=== PATIENT | female | born 1995 | race Two or more races ===

== ENCOUNTER 2020-09-19 15:56 | Emergency (ER) | payer MEDICAID, SELFPAY ==
--- NOTE | ~2020-09-19 | US_ITS ---
EXAMINATION: PELVIC ULTRASOUND CLINICAL INFORMATION: No menses with increasing pain COMPARISON: None TECHNIQUE: Both transabdominal endovaginal scanning was performed. FINDINGS: An anteverted anteflexed uterus is present measuring 8.4 x 4.8 x 5.4 cm. The endometrium appears normal at 7 mm. No fluid is present in the endometrial canal. The right ovary measures 3.8 x 2.4 x 2.0 cm for a volume of 9.6 mL and appears normal. The left ovary measures 3.7 x 2.5 x 1.7 cm for a volume of 8.2 mL and appears normal. No free fluid is present in the cul-de-sac. US/US pelvic and transvaginal IMPRESSION: Normal study.
[2020-09-19 18:15] VITALS: BP 119/80; TEMP 36.3; O2SAT 100; BMI 21.6
--- NOTE | 2020-09-19 18:22 | ED_ITS ---
HPI - Abdominal Pain General Chief Complaint: Abdominal Pain Stated Complaint: Lower abdominal pain Time Seen by Provider: 09/19/20 18:22 Source: patient Mode of arrival: ambulatory Limitations: no limitations History of Present Illness HPI narrative: lower pelvic pain for months with no period. Has not had a period since May. tests negative, no history of STDs, . No vaginal discharge or bleeding MD elicited complaint: other (pelvic pain) Onset (ago): month(s) Pain Consistency: intermittent Location: pelvis Severity: mild Quality: cramping Related Data Allergies Allergy/AdvReac Type Severity Reaction Status Date / Time No Known Allergies Allergy Unverified 01/24/20 18:28 [No Known Allergies*] Review of Systems Constitutional: Reports no additional constitutional complaints Eyes: Reports no additional eye complaints Denies dizziness Cardiovascular: Reports no additional cardiovascular complaints Respiratory: Reports as per HPI Gastrointestinal: Reports no additional gastrointestinal complaints Genitourinary: Reports no additional female genitourinary complaints Musculoskeletal: Reports no additional musculoskeletal complaints Skin/Breast: Denies rash Reports system reviewed and no additional complaints, except as documented, Denies dizziness and Denies Sensory deficit (Neuro) Psychiatric: Denies anxiety Physical Exam Vital Signs: Vital Signs: Last Vital Signs Temp 98.6 F 09/19/20 19:09 Pulse 71 09/19/20 19:09 Resp 18 09/19/20 19:09 BP 119/71 09/19/20 19:09 Pulse Ox 100 09/19/20 19:09 Body Mass Index 21.6 Const: General: healthy appearing Nutritional Appearance: average body habitus Orientation/consciousness: oriented to person and patient oriented x3 Limitations: no limitations HENMT: Head: Yes normal to inspection Ears: external ears normal General nose exam: Normal external nose present Mouth: Normal oral and palatal mucosa present and oropharynx normal Throat: Yes posterior oropharynx normal Eyes: General: appearance normal, both eyes and all related structures Neck: Other: supple Neck: Yes normal visual inspection Chest: Chest palpation & inspection: normal inspection of the chest Resp: Auscultation: clear to auscultation bilaterally Cardio: Jugular venous distension: no JVD Rate: regular rate Rhythm: regular rhythm Heart sounds: S1 normal heart sound present and S2 normal heart sound present GI: Inspection: Yes normal to inspection Palpation (GI): Soft to palpation, nontender and No hepatosplenomegaly present Auscultation: normal bowel sounds : General: Yes no CVA tenderness Back/Spine/Pelvis: Back: no CVA tenderness Skin: General skin exam: no rashes or lesions noted Neuro: General: oriented to person and patient oriented x3 Cranial nerves: Yes CN's II-XII intact bilaterally Motor exam (neuro): 5/5 motor strength present throughout Sensory Exam: No Sensory deficit (Neuro) Extrem: General: Yes normal to inspection Psych: Appearance: grossly normal Course Course Course Narrative: urine and ultrasound negative will dc home with follow up with [facility] tender MDM - Abdominal Pain Differential Diagnosis Differential diagnosis: Likely endometriosis Differential diagnosis narrative:: ovarian cyst Lab Data Labs: Lab Results 09/19/20 09/19/20 Range/Units 18:48 18:48 Urine Color YELLOW Urine Appearance CLOUDY Urine pH 8.0 (5.0-8.0) Ur Specific [place] 1.025 (1.005-1.025) Urine Protein NEG (NEG-TRACE) MG/DL Urine Glucose (UA) NEG (NEG) MG/DL Urine Ketones NEG (NEG) MG/DL Urine Blood NEG (NEG) Urine Nitrite NEG (NEG) Ur Leukocyte Esterase NEG (NEG) Urine Test NEGATIVE (NEGATIVE) Imaging Data pelvic us: Radiologist's impression: IMPRESSION: Normal study. Discharge Plan Discharge Clinical Impression: Amenorrhea Patient Disposition: Home, Self-Care Instructions: Pelvic Pain (ED) Referrals: Brandt Das MD [Physician] - 10 days [facility] Social History Social History Alcohol intake: current Alcohol type: wine and hard liquor Smoking Status: Never smoker Use of substances other than those prescribed or required for medical reasons: No Advance Directives: No Advance Directives Information Provided: Yes Patient : No
[2020-09-19 18:55] LABS: Appearance Urine CLOUDY; Color Urine YELLOW; Glucose Urine UA NEG (NEG); Leukocyte Esterase Urine NEG (NEG); Nitrite Urine NEG (NEG); Specific Gravity - Urine 1.025 (1.005-1.025); Urine Blood NEG (NEG); Urine Ketones NEG (NEG); Urine Protein NEG (NEG-TRACE)
[2020-09-19 18:56] LABS: Urine Pregnancy NEGATIVE (NEGATIVE)
[2020-09-19 19:09] VITALS: BP 119/71; PULSE 71; RESP 18; TEMP 37; O2SAT 100
[2020-09-19 20:16] LABS: UPreg QC Valid YES
== END 2020-09-19 21:28 | disposition home or self-care (01) ==
PROVIDERS: Emergency Provider Emergency Medicine
DX: N91.0 Primary amenorrhea (principal); R10.2 Pelvic and perineal pain; Z79.899 Other long term (current) drug therapy
CPT/HCPCS: 76830; 76856; 81003; 81025; 99284

== ENCOUNTER → 2020-10-07 14:14 | Outpatient (BNVA) | payer MEDICAID, SELFPAY | PROVIDERS: Visit Provider Obstetrics & Gynecology ==

== ENCOUNTER 2020-10-22 09:50 | Outpatient (REF) | payer MEDICAID, SELFPAY ==
[2020-10-23 05:36] LABS: CT PCR DETECTED (Not Detect.); NG PCR NOT DETECTED (Not Detect.)
[2020-10-23 09:48] LABS: BV Int Neg Control Negative (Negative); BV Int Pos Control Positive (Positive)
[2020-11-07 10:46] LABS: HPV 16 RNA NOT DETECTED (NOT DETECTED); HPV mRNA E6/E7 rflx Detected (Not Detected)
== END 2020-10-22 09:51 | disposition home or self-care (01) ==
LOC: HO.LAB 09:50
PROVIDERS: Visit Provider Obstetrics & Gynecology
DX: Z01.419 Encounter for gynecological examination (general) (routine) without abnormal findings (principal); Z11.3 Encounter for screening for infections with a predominantly sexual mode of transmission; B96.89 Other specified bacterial agents as the cause of diseases classified elsewhere; N76.0 Acute vaginitis
CPT/HCPCS: 87480; 87491; 87510; 87591; 87624; 87625; 87660; 88142

== ENCOUNTER 2020-10-27 13:47 | Outpatient (REF) | payer MEDICAID, SELFPAY ==
[2020-10-27 15:34] LABS: HCG Quantitative < 2 mIU/mL; TSH reflex Free T4 1.21 uIU/mL (0.32-4.0)
[2020-10-27 15:36] LABS: Syphilis Screen Nonreactive (Nonreactive)
[2020-10-28 08:02] LABS: Prolactin 9.4 ng/mL
[2020-10-28 09:16] LABS: Hepatitis B Surface Antigen Negative (Negative)
[2020-10-28 10:23] LABS: ~HepC Num1 0.08 S/CO (0.00-0.79); ~Hepatitis C Antibody Nonreactive (Nonreactive)
[2020-10-28 10:29] LABS: HIV AB/AG Nonreactive (Nonreactive); HIV Num 1 0.18 S/CO (0.00-0.99)
== END 2020-10-27 13:48 | disposition home or self-care (01) ==
LOC: HO.LAB 13:47
PROVIDERS: Visit Provider Obstetrics & Gynecology
DX: Z01.84 Encounter for antibody response examination (principal); Z11.59 Encounter for screening for other viral diseases; Z11.4 Encounter for screening for human immunodeficiency virus [HIV]; A74.9 Chlamydial infection, unspecified; N91.2 Amenorrhea, unspecified
CPT/HCPCS: 36415; 84146; 84443; 84702; 86780; 86803; 87340; 87389

== ENCOUNTER → 2020-11-11 10:42 | Outpatient (BNVA) | payer MEDICAID, SELFPAY | PROVIDERS: Visit Provider Obstetrics & Gynecology ==

== ENCOUNTER 2021-01-26 14:45 | Outpatient (REF) | payer MEDICAID, SELFPAY ==
[2021-01-27 04:51] LABS: CT PCR NOT DETECTED (Not Detect.); NG PCR NOT DETECTED (Not Detect.)
[2021-01-27 08:56] LABS: BV Int Neg Control Negative (Negative); BV Int Pos Control Positive (Positive)
== END 2021-01-26 14:46 | disposition home or self-care (01) ==
LOC: HO.LAB 14:45
PROVIDERS: Visit Provider Obstetrics & Gynecology
DX: A74.9 Chlamydial infection, unspecified (principal); B96.89 Other specified bacterial agents as the cause of diseases classified elsewhere; N76.0 Acute vaginitis
CPT/HCPCS: 87480; 87491; 87510; 87591; 87660; 99212

== ENCOUNTER 2021-02-03 13:56 | Outpatient (REF) | payer MEDICAID, SELFPAY | END 2021-02-03 13:57 | disposition home or self-care (01) | LOC: HO.LAB 13:56 | PROVIDERS: Visit Provider Obstetrics & Gynecology | DX: R87.810 Cervical high risk human papillomavirus (HPV) DNA test positive (principal) | CPT/HCPCS: 57454; 88305 ==

== ENCOUNTER 2021-02-13 17:41 | Emergency (ER) | payer MEDICAID, SELFPAY ==
[2021-02-13 19:28] VITALS: BP 120/82; PULSE 73; RESP 16; TEMP 36; O2SAT 100; BMI 21.2
[2021-02-13 19:51] LABS: Appearance Urine HAZY; Color Urine YELLOW; Glucose Urine UA NEG (NEG); Leukocyte Esterase Urine NEG (NEG); Nitrite Urine NEG (NEG); UACC Culture Trigger NO; Urine Blood 2+ (NEG); Urine Ketones 40 MG/DL (NEG); Urine Protein NEG (NEG-TRACE)
[2021-02-13 19:53] LABS: UPreg QC Valid YES; Urine Pregnancy POSITIVE (NEGATIVE)
[2021-02-13 19:59] LABS: Squamous Epithelial Cell Urine 3+ /LPF
[2021-02-13 20:03] LABS: Amorphous Sediment Urine 1+ /LPF; Bacteria Urine TRACE /LPF; WBC Urine 0-2 /HPF (0-4)
[2021-02-13 22:56] LABS: MANUAL DIFF FLAG NO
[2021-02-13 22:58] LABS: Basophils Percent Auto 0.4 % (0-2); Eosinophils Absolute Auto 0.1 X10*3/uL (0.0-0.4); Eosinophils Percent Auto 1.5 % (0-4); Hematocrit 38.9 % (37-47); Hemoglobin 12.6 g/dl (12.0-16.0); Imm Gran Abs Auto 0.02 X10*3/uL (0.00-0.03); Imm Gran Pct Auto 0.2 % (0.0-0.4); Lymphocytes Absolute Auto 2.7 X10*3/uL (1.2-4.9); Lymphocytes Percent Auto 28.8 % (20-40); Mean Corpuscular HGB Conc 32.4 g/dl (31.0-35.0); Mean Corpuscular Hemoglobin 28.4 pg (27.0-33.0); Mean Corpuscular Volume 87.6 fL (80-98); Mean Platelet Volume 9.7 fL (9.4-12.3); Monocytes Percent Auto 10.2 % (2-11); Neutrophils Absolute Auto 5.6 X10*3/uL (2.0-8.3); Neutrophils Percent Auto 58.9 % (45-73); Platelet Count 372 X10*3/uL (160-400); Red Blood Count 4.44 X10*6/uL (4.20-5.50); Red Cell Distribution Width 12.1 % (11.0-16.0); White Blood Count 9.5 X10*3/uL (4.8-10.8)
[2021-02-13 23:12] LABS: Anion Gap 13 (12-20); Blood Urea Nitrogen 8 mg/dL (9-16); Calcium 9.4 mg/dL (8.4-10.2); Carbon Dioxide 21 mmol/L (22-29); Chloride 105 mmol/L (96-108); Creatinine Clr Calc Pharmacy 96.6; Estimated Glomerular Filt Rate > 60; Glucose Random 75 mg/dL (60-115); Potassium 3.9 mmol/L (3.3-5.1); Sodium 135 mmol/L (135-145)
[2021-02-13 23:20] LABS: HCG Quantitative 6868 mIU/mL
--- NOTE | 2021-02-14 00:12 | ED_ITS ---
HPI - Female Genitourinary General Chief complaint: Urogenital-Female Stated complaint: uro-genital female Time Seen by Provider: 02/14/21 00:11 Source: patient Mode of arrival: ambulatory Limitations: no limitations History of Present Illness MD elicited complaint: pelvic pain Onset (ago): day(s) (3) Location of symptoms: suprapubic Severity: mild Quality of pain: dull Consistency: intermittent Vaginal discharge: none Vaginal bleeding: other (noted some pink tinge when she wipes only and it was brief and intermittent) Exacerbating factors: none Relieving factors: none Associated symptoms: denies other symptoms Treatment prior to arrival: none Sexual activity: Yes Possible : unsure if Date of Last Menstrual Period: 01/03/21 Related Data Previous Rx's Medication Instructions Recorded metronidazole 500 mg tablet 500 mg PO BID 7 Days #14 tab 01/26/21 Allergies Allergy/AdvReac Type Severity Reaction Status Date / Time No Known Allergies Allergy Verified 10/07/20 14:15 [No Known Allergies*] Review of Systems Review of Systems: Constitutional : No Fever, No Chills ENT/Mouth : No sore throat, No Rhinorrhea Eyes: No Eye Pain, No Redness Cardiovascular : No Chest Pain, No SOB Respiratory : No Cough, No Sputum, No Wheezing Gastrointestinal : no Nausea, No Vomiting, No Diarrhea, no abdominal pain, Genitourinary : no irregular bleeding, No Dysuria, No Urinary Frequency, positive pelvic pain Musculoskeletal : No Myalgias Skin : No rash Neuro : No Weakness, No Headache Psych : No Anxiety/Panic, No Depression Heme/Lymph: No bruising, No Lymphadenopathy Endocrine : No Polyuria, No Polydipsia All other systems reviewed and are negative [facility] Past Medical History Attestation statement: The following information was validated with the patient. Medical History (Updated 02/14/21 @ 00:36 by Michaela Sawant DO) Amenorrhea Date of Last Menstrual Period: 01/03/21 Social History Social History Alcohol intake: current Alcohol type: wine and hard liquor Patient Tobacco Use Status: Never used Tobacco Advance Directives: No Advance Directives Information Provided: Yes Physical Exam Vital Signs: Vital Signs: Last Vital Signs Temp 98.8 F 02/14/21 00:28 Pulse 90 02/14/21 00:28 Resp 16 10/09/21 00:28 BP 136/58 L 02/14/21 00:28 Pulse Ox 100 02/14/21 00:28 Body Mass Index 21.2 Appearance: Alert. Oriented X3. No acute distress. Eyes: Pupils equal, round and reactive to light. ENT: Pharynx normal. Neck: Normal inspection. Neck supple. CVS: Normal heart rate and rhythm. Pulses normal. Respiratory: No respiratory distress. Breath sounds normal. Abdomen: Soft and nontender. Skin: Skin warm and dry. Normal skin color. Normal skin turgor. Extremities: No lower extremity edema. No calf ttp Neuro: Oriented X 3. No motor deficit. No sensory deficit. MDM - Female Genitourinary MDM Narrative Medical decision making narrative: 26 yo female LMP 01/03 here with lower abdominal discomfort and intermittent pink tinge when she wipes but no bleeding - unsure if she was , I offered formal US as the bedside one I did just found a gestational sac with a quant of 6,000 - at this time she declines and wants to come back in the AM for US. She is aware she is an ectopic precaution Lab Data Result diagrams: 02/13/21 22:36 02/13/21 22:36 Labs: Lab Results 02/13/21 02/13/21 02/13/21 Range/Units 19:40 19:40 22:36 WBC 9.5 (4.8-10.8) X10*3/uL RBC 4.44 (4.20-5.50) X10*6/uL Hgb 12.6 (12.0-16.0) g/dl Hct 38.9 (37-47) % MCV 87.6 (80-98) fL MCH 28.4 (27.0-33.0) pg MCHC 32.4 (31.0-35.0) g/dl RDW 12.1 (11.0-16.0) % Plt Count 372 (160-400) X10*3/uL MPV 9.7 (9.4-12.3) fL Immature Gran % (Auto) 0.2 (0.0-0.4) % Neut % (Auto) 58.9 (45-73) % Lymph % (Auto) 28.8 (20-40) % [place] % (Auto) 10.2 (2-11) % Eos % (Auto) 1.5 (0-4) % Baso % (Auto) 0.4 (0-2) % Lymph # (Auto) 2.7 (1.2-4.9) X10*3/uL [place] # (Auto) 1.0 (0.1-1.2) X10*3/uL Eos # (Auto) 0.1 (0.0-0.4) X10*3/uL Baso # (Auto) 0.0 (0.0-0.2) X10*3/uL Abs Immat Gran (auto) 0.02 (0.00-0.03) X10*3/uL Absolute Neuts (auto) 5.6 (2.0-8.3) X10*3/uL Absolute Nucleated RBC 0.000 (0.0-0.012) X10*3/uL Nucleated RBC % (auto) 0.0 (0.0-0.2) /100WBC Sodium (135-145) mmol/L Potassium (3.3-5.1) mmol/L Chloride (96-108) mmol/L Carbon Dioxide (22-29) mmol/L Anion Gap (12-20) BUN (9-16) mg/dL Creatinine (0.5-1.4) mg/dL Estim Creat Clear Calc Estimated GFR Random Glucose (60-115) mg/dL Calcium (8.4-10.2) mg/dL Beta HCG, Quant mIU/mL Urine Color YELLOW Urine Appearance HAZY Urine pH 7.0 (5.0-8.0) Ur Specific [place] 1.020 (1.005-1.025) Urine Protein NEG (NEG-TRACE) MG/DL Urine Glucose (UA) NEG (NEG) MG/DL Urine Ketones 40 (NEG) MG/DL Urine Blood 2+ H (NEG) Urine Nitrite NEG (NEG) Ur Leukocyte Esterase NEG (NEG) Urine RBC 1-4 (0) /HPF Urine WBC 0-2 (0-4) /HPF Ur Squamous Epith Cells 3+ /LPF Amorphous Sediment 1+ /LPF Urine Bacteria TRACE /LPF Urine Test POSITIVE H (NEGATIVE) 02/13/21 Range/Units 22:36 WBC (4.8-10.8) X10*3/uL RBC (4.20-5.50) X10*6/uL Hgb (12.0-16.0) g/dl Hct (37-47) % MCV (80-98) fL MCH (27.0-33.0) pg MCHC (31.0-35.0) g/dl RDW (11.0-16.0) % Plt Count (160-400) X10*3/uL MPV (9.4-12.3) fL Immature Gran % (Auto) (0.0-0.4) % Neut % (Auto) (45-73) % Lymph % (Auto) (20-40) % [place] % (Auto) (2-11) % Eos % (Auto) (0-4) % Baso % (Auto) (0-2) % Lymph # (Auto) (1.2-4.9) X10*3/uL [place] # (Auto) (0.1-1.2) X10*3/uL Eos # (Auto) (0.0-0.4) X10*3/uL Baso # (Auto) (0.0-0.2) X10*3/uL Abs Immat Gran (auto) (0.00-0.03) X10*3/uL Absolute Neuts (auto) (2.0-8.3) X10*3/uL Absolute Nucleated RBC (0.0-0.012) X10*3/uL Nucleated RBC % (auto) (0.0-0.2) /100WBC Sodium 135 (135-145) mmol/L Potassium 3.9 (3.3-5.1) mmol/L Chloride 105 (96-108) mmol/L Carbon Dioxide 21 L (22-29) mmol/L Anion Gap 13 (12-20) BUN 8 L (9-16) mg/dL Creatinine 0.78 (0.5-1.4) mg/dL Estim Creat Clear Calc 96.6 Estimated GFR > 60 Random Glucose 75 (60-115) mg/dL Calcium 9.4 (8.4-10.2) mg/dL Beta HCG, Quant 6868 mIU/mL Urine Color Urine Appearance Urine pH (5.0-8.0) Ur Specific [place] (1.005-1.025) Urine Protein (NEG-TRACE) MG/DL Urine Glucose (UA) (NEG) MG/DL Urine Ketones (NEG) MG/DL Urine Blood (NEG) Urine Nitrite (NEG) Ur Leukocyte Esterase (NEG) Urine RBC (0) /HPF Urine WBC (0-4) /HPF Ur Squamous Epith Cells /LPF Amorphous Sediment /LPF Urine Bacteria /LPF Urine Test (NEGATIVE) Procedures Procedure Narrative Procedure Narrative: bedside US shows gestational sac but that is it, no free fluid, no pain with US probe Discharge Plan Discharge Clinical Impression: Qualifiers: Weeks of gestation: less than 8 weeks Qualified Code(s): Z3A.01 - Less than 8 weeks gestation of Patient Disposition: Home, Self-Care Instructions: (ED), Abdominal Pain in (ED) Additional Instructions: you need an ultrasound to determine the location of your baby - please come back for US when you have time, if you have worse pain/bleeding become weak or dizzy please return as soon as possible this could be life threatening call your OB Prescriptions: No Action metronidazole 500 mg tablet 500 mg PO BID 7 Days Qty: 14 RF: 0
[2021-02-14 00:28] VITALS: BP 136/58; PULSE 90; RESP 16; TEMP 37.1; O2SAT 100
== END 2021-02-14 00:48 | disposition home or self-care (01) ==
PROVIDERS: Emergency Provider Emergency Medicine
DX: O26.891 Other specified pregnancy related conditions, first trimester (principal); R10.2 Pelvic and perineal pain; Z3A.01 Less than 8 weeks gestation of pregnancy
CPT/HCPCS: 36415; 80048; 81001; 81025; 84702; 85025; 99283; 99284

== ENCOUNTER 2021-02-16 13:02 | Emergency (ER) | payer MEDICAID, SELFPAY ==
--- NOTE | ~2021-02-16 | US_ITS ---
EXAMINATION: US OBSTETRICAL ULTRASOUND CLINICAL INFORMATION: Right lower quadrant abdominal pain. COMPARISON: Pelvic ultrasound dated from 09/19/2020. LMP: 01/03/2021. Gestational age by maternal dates is 6 weeks and 2 days. Estimated date of delivery by maternal dates is 10/10/2021. TECHNIQUE: Transvaginal and transabdominal ultrasound of the pelvis were obtained. FINDINGS: There is a single intrauterine gestational sac with visible yolk sac. The gestational sac measures 1.1 cm corresponding to a gestational age of 5 weeks and 6 days. A pole is not visualized. There is no significant subchorionic hemorrhage or hematoma. MATERNAL ADNEXA: Both ovaries are normal in morphology with preserved flow on color Doppler. The right maternal ovary measures 2.7 x 1.8 x 1.9 cm. There is a 1.2 x 1.7 x 1.4 cm corpus luteal cyst in the right ovary. The left maternal ovary measures 2.7 x 2.4 x 1.6 cm. No maternal pelvic ascites. US/US OB pelvic and transvaginal IMPRESSION: Single intrauterine gestation with ultrasound gestational age of 5 weeks and 6 days. A pole is not yet identified, likely too early in gestation. Recommend a short-term follow-up. No evidence of ovarian torsion at this time.
[2021-02-16 13:38] VITALS: BP 106/68; PULSE 90; RESP 16; TEMP 36.6; O2SAT 100; BMI 21.2
--- NOTE | 2021-02-16 18:54 | ED.PREGNANCY ---
HPI - General Chief complaint: Vaginal Bleeding Stated complaint: vag bleed Time Seen by Provider: 02/16/21 18:30 Source: patient and old records reviewed Limitations: no limitations History of Present Illness HPI Narrative: . LMP January 01. Patient complaining of right lower quadrant abdominal pain with mild bleeding. Patient was seen here 3 days ago with the similar symptoms. Workup at that time revealed an hCG quant of 6000. ED level ultrasound showed likely intrauterine but was not able to rule out ectopic . She returns now for formal ultrasound. She denies lightheadedness. Positive nausea without vomiting No urinary symptoms No significant change in bleeding or other symptoms since her last visit. She states the bleeding is mostly when she wipes after urinating. No clots or tissue Related Data Previous Rx's Medication Instructions Recorded metronidazole 500 mg tablet 500 mg PO BID 7 Days #14 tab 01/26/21 prenat.vits,sincere,mpx-vnce-omtsr 1 tab PO DAILY #30 tab 02/16/21 Allergies Allergy/AdvReac Type Severity Reaction Status Date / Time No Known Allergies Allergy Verified 10/07/20 14:15 [No Known Allergies*] Review of Systems Constitutional: Comments: No general weakness, fevers, chills Cardiovascular: Comments: No chest pain Respiratory: Comments: No dyspnea Gastrointestinal: Comments: Lower right-sided abdominal pain. Nausea without vomiting Genitourinary: Comments: Vaginal bleeding when wiping. No clots PMFSH Past Medical History Medical History (Updated 02/16/21 @ 20:48 by Federico Devi MD) Amenorrhea Social History Social History Alcohol intake: never Patient Tobacco Use Status: Never used Tobacco Use of substances other than those prescribed or required for medical reasons: No Advance Directives: No Advance Directives Information Provided: No Patient : Yes Physical Exam Vital Signs: Vital Signs: Last Vital Signs Temp 98.4 F 02/16/21 19:00 Pulse 91 02/16/21 19:00 Resp 18 02/16/21 19:00 BP 107/63 02/16/21 19:00 Pulse Ox 100 02/16/21 19:00 Body Mass Index 21.2 Const: Other: Awake and alert no acute distress Resp: Other: No respiratory distress GI: Other: Soft. Tender right lower quadrant without guarding or rebound. Some tenderness suprapubically as well. Skin: Other: Warm pink and dry Neuro: Other: Nonfocal Course Course Course Narrative: Abdominal pain and vaginal bleeding in Rule out ectopic Rule out miscarriage HCG quant will be repeated today. Formal ultrasound ordered 8:46 p.m.. Ultrasound shows at approximately 5 weeks 6 days. No other abnormalities noted. Repeat hCG quant today is 14,000 Results conveyed to the patient with the use of the senior unix administrator services over the phone. Patient understands and she has follow-up with her project control analyst in 2 days. In the meantime I will prescribe vitamins MDM - OB/Uterine Contractions Lab Data Labs: Lab Results 02/16/21 Range/Units 19:06 Beta HCG, Quant 67889 mIU/mL Discharge Plan Discharge Clinical Impression: Threatened Patient Disposition: Home, Self-Care Instructions: Abdominal Pain in (ED) Prescriptions: Abel nobles.vits,sincere,smm-unne-zusor Tablet 1 tab PO DAILY Qty: 30 RF: 0 No Action metronidazole 500 mg tablet 500 mg PO BID 7 Days Qty: 14 RF: 0
[2021-02-16 19:00] VITALS: BP 107/63; PULSE 91; RESP 18; TEMP 36.9; O2SAT 100
[2021-02-16 19:35] LABS: HCG Quantitative 14264 mIU/mL
--- NOTE | 2021-02-16 20:06 | PC.NURSE ---
RN assumed care at 1900. Pt alert and oriented x4, calm and cooperative. Pt states 5/10 lower B/L abd pain described as cramping. Pt states spotting started today, earlier this morning color was pink and throughout day color progressed to dark red. Pt states she only has blood on toilet paper with wiping, non in the toilet. Pt states small amount with wiping. Pt denies N/V. Pt resting in stretcher calmly at this time waiting for ultrasound. Will continue to monitor.
[2021-02-16 21:07] VITALS: BP 110/64; PULSE 87; RESP 18; TEMP 37; O2SAT 98
--- NOTE | 2021-02-16 21:07 | PC.NURSE ---
Pt alert and oriented x4, calm and cooperative. Pt denies pain at this time. Pt educated on ultrasound results and educated on dc teaching. No IV in place, vitals stable. Pt ambulated out to private car with friend.
== END 2021-02-16 21:09 | disposition home or self-care (01) ==
PROVIDERS: Emergency Provider Emergency Medicine
DX: O20.0 Threatened abortion (principal); Z3A.01 Less than 8 weeks gestation of pregnancy
CPT/HCPCS: 36415; 76801; 76817; 84702; 99284

== ENCOUNTER 2021-02-18 11:13 | Outpatient (REF) | payer MEDICAID, SELFPAY ==
[2021-02-18 15:53] LABS: CT PCR NOT DETECTED (Not Detect.); NG PCR NOT DETECTED (Not Detect.)
== END 2021-02-18 11:14 | disposition home or self-care (01) ==
LOC: HO.LAB 11:13
PROVIDERS: Visit Provider Obstetrics & Gynecology
DX: O20.0 Threatened abortion (principal); O98.811 Other maternal infectious and parasitic diseases complicating pregnancy, first trimester; A74.9 Chlamydial infection, unspecified; O99.891 Other specified diseases and conditions complicating pregnancy; N87.0 Mild cervical dysplasia; Z3A.01 Less than 8 weeks gestation of pregnancy
CPT/HCPCS: 86850; 86900; 86901; 87491; 87591; 99212

== ENCOUNTER 2021-03-02 14:00 | Outpatient (REF) | payer MEDICAID, SELFPAY ==
--- NOTE | ~2021-03-02 | US_ITS ---
EXAMINATION: US OBSTETRICAL ULTRASOUND CLINICAL INFORMATION: Threatened COMPARISON: Previous exam 02/16/2021. LMP: 01/03/2021. Gestational age by maternal dates is 8 weeks 2 days. Estimated date of delivery by maternal dates is 10/10/2021. TECHNIQUE: Transabdominal first trimester OB ultrasound FINDINGS: There is a single intrauterine gestational sac with visible yolk sac, embryo/fetus, and cardiac activity. There is no significant subchorionic hemorrhage or hematoma. HR: 153 beats per minute. CRL (crown rump length): 1.19 cm (7 weeks 3 days +/- 4 days). KELVIN (estimated date of delivery): 10/16/2021 +/- 4 days. MATERNAL ADNEXA: The right maternal ovary measures 2.7 x 2.3 x 2.4 cm. There is a 1.3 x 1.5 x 1.2 cm right ovarian cyst. The left maternal ovary measures 3.2 x 1.8 x 2.8 cm. There is no significant maternal adnexal mass. No maternal pelvic ascites. US/US OB <= 14 weeks fetus IMPRESSION: 1. Single intrauterine gestation with ultrasound gestational age of 7 weeks 3 days +/- 4 days. 2. Estimated date of delivery is 10/16/2021 +/- 4 days. 3. No maternal adnexal mass or pelvic ascites.
== END 2021-03-02 14:01 | disposition home or self-care (01) ==
LOC: HO.US 14:00
PROVIDERS: Visit Provider Obstetrics & Gynecology
DX: O20.0 Threatened abortion (principal)
CPT/HCPCS: 76801

== ENCOUNTER → 2021-03-03 10:53 | Outpatient (BNVA) | payer MEDICAID, SELFPAY | PROVIDERS: Visit Provider Obstetrics & Gynecology | DX: N87.0 Mild cervical dysplasia (principal); A74.9 Chlamydial infection, unspecified; Z34.90 Encounter for supervision of normal pregnancy, unspecified, unspecified trimester | CPT/HCPCS: 99212 ==

== ENCOUNTER → 2021-03-18 10:14 | Outpatient (BNVA) | payer MEDICAID, SELFPAY | PROVIDERS: Visit Provider Obstetrics & Gynecology | DX: Z34.91 Encounter for supervision of normal pregnancy, unspecified, first trimester (principal); Z3A.10 10 weeks gestation of pregnancy | CPT/HCPCS: 99212 ==

== ENCOUNTER 2021-03-23 10:38 | Outpatient (REF) | payer MEDICAID, SELFPAY ==
[2021-03-23 13:13] LABS: Hemoglobin 12.8 g/dl (12.0-16.0); Mean Corpuscular HGB Conc 32.8 g/dl (31.0-35.0); Mean Corpuscular Hemoglobin 28.7 pg (27.0-33.0); Mean Corpuscular Volume 87.4 fL (80.0-98.0); Platelet Count 309 X10*3/uL (160-400); Red Blood Count 4.46 X10*6/uL (4.20-5.50); Red Cell Distribution Width 12.2 % (11.0-16.0); White Blood Count 10.5 X10*3/uL (4.8-10.8)
[2021-03-23 13:21] LABS: Amphetamine Screen Urine Not Detected (Not Detect); Barbiturates, Urine Not Detected (Not Detect); Benzodiazepines Screen Urine Not Detected (Not Detect); Cannabinoid Screen Urine Not Detected (Not Detect); Cocaine Screen Urine Not Detected (Not Detect); Fentanyl, urine Not Detected (Not Detect); Opiate Screen Urine Not Detected (Not Detect); Phencyclidine Screen Urine Not Detected (Not Detect)
[2021-03-23 13:36] LABS: Glucose 1 Hour PP 50gm Dose 69 mg/dL (60-140)
[2021-03-23 14:01] LABS: Syphilis Screen Nonreactive (Nonreactive)
[2021-03-25 08:41] LABS: Varicella IgG Antibody <135.00 index
[2021-03-25 08:43] LABS: HIV AB/AG Nonreactive (Nonreactive)
[2021-03-25 09:14] LABS: HBsAGNum1 0.11 S/CO (0.00-0.99); Hepatitis B Surface Antigen Negative (Negative); ~HepC Num1 0.06 S/CO (0.00-0.79); ~Hepatitis C Antibody Nonreactive (Nonreactive)
== END 2021-03-23 10:39 | disposition home or self-care (01) ==
LOC: HO.LAB 10:38
PROVIDERS: Visit Provider Obstetrics & Gynecology
DX: Z32.01 Encounter for pregnancy test, result positive (principal)
CPT/HCPCS: 80307; 85027; 86762; 86780; 86787; 86803; 86850; 86900; 86901; 87086; 87340; 87389

== ENCOUNTER 2021-04-10 12:26 | Outpatient (REF) | payer MEDICAID, SELFPAY ==
--- NOTE | ~2021-04-10 | US_ITS ---
EXAMINATION: OBSTETRICAL ULTRASOUND, FIRST TRIMESTER HISTORY: 26-year-old at 13.0 weeks gestation NT screening COMPARISON: 03/02/2021 TECHNIQUE: Real time transabdominal imaging with color and M-mode Doppler. FINDINGS: A single, live IUP CRL of 73.6 mm c/w 13.4wks is noted. Heart Rate: 135 beats per minute. Normal yolk sac seen. NT was 1.03.mm. NB Present The embryo appears sonographically wnl for this GA. Both maternal ovaries are seen and appear normal. GESTATIONAL AGE: 1. Established GA: 13.0 wks 2. GA from AUA: 13.4 wks ESTIMATED DATE OF DELIVERY: 1. Established KELVIN: 10/16/2021 2. KELVIN from A: 10/12/2021 US/US OB 1T nuc measure IMPRESSION: 1. A single live IUP 2. Size equals dates 3. NT of 1.03 mm MFM Consultation: I reviewed the ultrasound findings along with significance of NT measurement. The NT of less than 3mm is generally reassuring. However, the sensitivity for T21 detection is only 60%. I reviewed the availability of serum aneuploidy screening which includes cell-free DNA and placental protein based tests. I discussed the sensitivity, false-positive rate, and other limitations associated with each test. I also reviewed the availability of invasive diagnostic tests that are associated small but definite risk of miscarriage. We also reviewed the differences between screening tests and diagnostic tests. After our discussion, she opted for the First trimester screening that is based on cell-free DNA or non-invasive testing (NIPT). The result will be faxed to your office in approximately 7 days. A follow up at 18 weeks for survey has been scheduled. Thank you very much for this referral. Total time 30 minutes. The time spent was devoted to counseling the patient about the disease and diagnosis, coordinating care including reviewing her records, pertinent lab data and studies, as well as discussing diagnostic evaluation and workup, plan therapeutic interventions and future disposition of care. This includes any additional research needed to obtain further information in formulating the plan of care of this patient. This note was generated with a voice recognition program. Please excuse any errors which may have been overlooked during my review of this note. Sometimes these errors may affect the content or meaning of a given sentence.
== END 2021-04-10 12:27 | disposition home or self-care (01) ==
LOC: HO.US 12:26
PROVIDERS: Visit Provider Obstetrics & Gynecology
DX: Z34.91 Encounter for supervision of normal pregnancy, unspecified, first trimester (principal); Z36.82 Encounter for antenatal screening for nuchal translucency
CPT/HCPCS: 76813

== ENCOUNTER 2021-04-13 11:01 | Outpatient (REF) | payer MEDICAID, SELFPAY ==
[2021-04-13 15:24] LABS: CT PCR NOT DETECTED (Not Detect.); NG PCR NOT DETECTED (Not Detect.)
[2021-04-14 10:20] LABS: BV Int Neg Control Negative (Negative); BV Int Pos Control Positive (Positive)
== END 2021-04-13 11:02 | disposition home or self-care (01) ==
LOC: HO.LAB 11:01
PROVIDERS: Visit Provider Advanced Practice Midwife
DX: O99.891 Other specified diseases and conditions complicating pregnancy (principal); D06.9 Carcinoma in situ of cervix, unspecified; Z3A.13 13 weeks gestation of pregnancy; Z20.2 Contact with and (suspected) exposure to infections with a predominantly sexual mode of transmission
CPT/HCPCS: 81003; 87480; 87491; 87510; 87591; 87660; 99212

== ENCOUNTER 2021-05-22 10:24 | Outpatient (REF) | payer MEDICAID, SELFPAY ==
--- NOTE | ~2021-05-22 | US_ITS ---
EXAMINATION: US OBSTETRICAL CLINICAL INFORMATION: 26-year-old at 19.6 weeks of gestation Screening for anomaly COMPARISON: 04/10/2021 TECHNIQUE: Real-time transabdominal ultrasound was performed using C1-5 megahertz transducer. FINDINGS: A single, active, fetus is seen in vertex presentation. The placenta is anterior without previa, and the amniotic fluid volume is wnl. MEASUREMENTS: 1. Biparietal Diameter: 4.6 cm; 20.0 wks 2. Occipital Frontal Diameter: 5.95 cm 3. Head Circumference: 17.6 cm; 20.1 wks 4. Abdominal Circumference: 14.2 cm; 19.4 wks 5. Femur Length: 2.84 cm; 18.5 wks 6. Humerus Length: 2.8 cm; 19.0 wks 7. Tibia Length: 2.5 cm; 19.0 wks 8. Ulna Length: 2.6 cm; 19.2 wks 9. Lateral ventricle: 1.02 cm 10. Cerebellum: 2.1 cm; 21.4 wks 11. Cisterna Magna: 0.5 cm 12. Nuchal Fold: 4.0 mm 13. Heart Rate: 142 beats per minute Rt ovary: normal Lt ovary: normal Cervical length 3.5 cm on T/A. GESTATIONAL AGE: 1. Established GA: 19.6 wks 2. GA from [facility]: 19.5 wks ESTIMATED DATE OF DELIVERY: 1. Established KELVIN: 10/10/2021 2. KELVIN from [facility]: 10/11/2021 ANATOMY: Right choroid plexus cyst The visualized anatomy includes but not limited to: 1. Cranium: Normal 2. Intracranial anatomy: cavum septum pellucidi, lateral ventricles, right choroid plexus cyst, cerebellum, posterior fossa, third and fourth ventricles. 3. face: orbits, lip/palate, profile, nasal bone 4. Heart: four-chamber view of the heart, ventricular septum, foramen ovale, pulmonary vein, left and right outflow tracts, three-vessel view, 3 vessel trachea view, aortic and ductal arches, situs.. 5. Diaphragm: Normal 6. Abdominal wall: Normal 7. Cord Insertion: Normal 8. Spine: Cervical, thoracic, lumbar, sacral. 9. Stomach: Normal size and shape 10. Right Kidney: Normal 11. Left Kidney: Normal 12. 3 vessel cord: Normal 13. Upper extremity: Open hands, fifth digit. 14. Lower extremity: Tibia, fibula, bilateral feet. 15. Bladder: Normal 16. Genitalia: Male, patient aware US/US OB /maternal detail IMPRESSION: 1. Single, living, intrauterine with appropriate biometry. 2. Right choroid plexus cyst. The rest of the anatomy was within normal limits. DISCUSSION: I informed the patient that there choroid plexus cysts are benign developmental finding noted within the choroid plexus. The majority will resolve spontaneously. It is noted in approximately 3% of normal fetuses. The frequency is higher in fetuses with trisomy 18. I reassured her that there were no ultrasound stigmata for trisomy 18. Patient had the low risk N IPT. In this setting an isolated choroid plexus cyst is considered a normal variant. We discussed the limitations of ultrasound in diagnosing aneuploidy and other congenital abnormalities. I reviewed the differences between screening test and diagnostic test. Amniocentesis was discussed and declined. She was informed that the baseline incidence of congenital abnormalities is approximately 3-5%. Not all these conditions are diagnosable in utero. RECOMMENDATIONS: 1. Interval growth evaluation in approximately 2 months is suggested (not scheduled). Thank you for allowing me to participate in her care. Total time 30 minutes. The time spent was devoted to counseling the patient about the disease and diagnosis, coordinating care including reviewing her records, pertinent lab data and studies, as well as discussing diagnostic evaluation and workup, plan therapeutic interventions and future disposition of care. This includes any additional research needed to obtain further information in formulating the plan of care of this patient. This note was generated with a voice recognition program. Please excuse any errors which may have been overlooked during my review of this note. Sometimes these errors may affect the content or meaning of a given sentence.
== END 2021-05-22 10:25 | disposition home or self-care (01) ==
LOC: HO.US 10:24
PROVIDERS: Visit Provider Obstetrics & Gynecology
DX: O35.0XX0 Maternal care for (suspected) central nervous system malformation in fetus, not applicable or unspecified (principal); Z3A.19 19 weeks gestation of pregnancy
CPT/HCPCS: 76811

== ENCOUNTER 2021-05-27 14:55 | Outpatient (REF) | payer MEDICAID, SELFPAY ==
[2021-05-27 15:47] LABS: COVID-19 Test Negative (Negative)
== END 2021-05-27 14:56 | disposition home or self-care (01) ==
LOC: HO.LAB 14:55
PROVIDERS: Visit Provider Internal Medicine
DX: Z20.822 Contact with and (suspected) exposure to COVID-19 (principal)
CPT/HCPCS: 87635; C9803

== ENCOUNTER → 2021-06-02 09:00 | Outpatient (BNVA) | payer MEDICAID, SELFPAY | PROVIDERS: Visit Provider Advanced Practice Midwife | DX: Z34.82 Encounter for supervision of other normal pregnancy, second trimester (principal); Z3A.21 21 weeks gestation of pregnancy | CPT/HCPCS: 81003; 99212 ==

== ENCOUNTER → 2021-07-01 11:20 | Outpatient (BNVA) | payer MEDICAID, SELFPAY | PROVIDERS: Visit Provider Advanced Practice Midwife | DX: Z34.82 Encounter for supervision of other normal pregnancy, second trimester (principal); Z3A.25 25 weeks gestation of pregnancy; Z36.3 Encounter for antenatal screening for malformations | CPT/HCPCS: 81003; 99212 ==

== ENCOUNTER 2021-07-10 08:31 | Outpatient (REF) | payer MEDICAID, SELFPAY ==
--- NOTE | ~2021-07-10 | US_ITS ---
EXAMINATION: OBSTETRICAL ULTRASOUND, Follow up HISTORY: 26-year-old at the 26.6 weeks of gestation Size date discrepancy Choroid plexus cyst COMPARISON: 05/22/2021 TECHNIQUE: Real time transabdominal imaging with color and M-mode Doppler. PRESENTATION: Vertex PLACENTA LOCATION: Anterior without previa AMNIOTIC FLUID: Normal, deep vertical pocket 4.2 cm MEASUREMENTS: 1. Biparietal Diameter: 6.5 cm; 26.2 wks 2. Head Circumference: 24.6 cm; 26.5 wks 3. Abdominal Circumference: 22.4 cm; 26.6 wks 4. Femur Length: 4.6 cm; 25.2 wks 5. Heart Rate: 138 beats per minute WEIGHT: EFW: 908 grams (2 lbs 0 oz) -- 17 %. Umbilical Doppler SD ratio 3.1 which is within normal limits. The views of the lateral ventricles, posterior fossa, four-chamber view, stomach, kidneys are within normal limits. Previously seen choroid plexus cyst has resolved. GESTATIONAL AGE: 1. Established GA: 26.6 wks 2. GA from [facility]: 26.2 wks ESTIMATED DATE OF DELIVERY: 1. Established KELVIN: 10/10/2021 2. KELVIN from [facility]: 10/14/2021 US/US OB velocimetry umbilical ar IMPRESSION: 1. A single active fetus is in vertex presentation 2. Size equals dates 3. WATER PROJECT MANAGER resolved 4. Normal umbilical Doppler I reviewed today's ultrasound findings and gave her reassurance. We discussed the limitations of ultrasound and estimating weights. The choroid plexus cyst has resolved. In the setting of low risk NIPT, choroid plexus cyst is considered a normal variant. No further ultrasound has been scheduled today. Thank you very much for this referral. Total time 20 minutes. The time spent was devoted to counseling the patient about the disease and diagnosis, coordinating care including reviewing her records, pertinent lab data and studies, as well as discussing diagnostic evaluation and workup, plan therapeutic interventions and future disposition of care. This includes any additional research needed to obtain further information in formulating the plan of care of this patient. This note was generated with a voice recognition program. Please excuse any errors which may have been overlooked during my review of this note. Sometimes these errors may affect the content or meaning of a given sentence.
--- NOTE | ~2021-07-10 | US_ITS ---
EXAMINATION: OBSTETRICAL ULTRASOUND, Follow up HISTORY: 26-year-old at the 26.6 weeks of gestation Size date discrepancy Choroid plexus cyst COMPARISON: 05/22/2021 TECHNIQUE: Real time transabdominal imaging with color and M-mode Doppler. PRESENTATION: Vertex PLACENTA LOCATION: Anterior without previa AMNIOTIC FLUID: Normal, deep vertical pocket 4.2 cm MEASUREMENTS: 1. Biparietal Diameter: 6.5 cm; 26.2 wks 2. Head Circumference: 24.6 cm; 26.5 wks 3. Abdominal Circumference: 22.4 cm; 26.6 wks 4. Femur Length: 4.6 cm; 25.2 wks 5. Heart Rate: 138 beats per minute WEIGHT: EFW: 908 grams (2 lbs 0 oz) -- 17 %. Umbilical Doppler SD ratio 3.1 which is within normal limits. The views of the lateral ventricles, posterior fossa, four-chamber view, stomach, kidneys are within normal limits. Previously seen choroid plexus cyst has resolved. GESTATIONAL AGE: 1. Established GA: 26.6 wks 2. GA from [facility]: 26.2 wks ESTIMATED DATE OF DELIVERY: 1. Established KELVIN: 10/10/2021 2. KELVIN from [facility]: 10/14/2021 US/US OB follow up IMPRESSION: 1. A single active fetus is in vertex presentation 2. Size equals dates 3. POWER SWEEPER OPERATOR resolved 4. Normal umbilical Doppler I reviewed today's ultrasound findings and gave her reassurance. We discussed the limitations of ultrasound and estimating weights. The choroid plexus cyst has resolved. In the setting of low risk NIPT, choroid plexus cyst is considered a normal variant. No further ultrasound has been scheduled today. Thank you very much for this referral. Total time 20 minutes. The time spent was devoted to counseling the patient about the disease and diagnosis, coordinating care including reviewing her records, pertinent lab data and studies, as well as discussing diagnostic evaluation and workup, plan therapeutic interventions and future disposition of care. This includes any additional research needed to obtain further information in formulating the plan of care of this patient. This note was generated with a voice recognition program. Please excuse any errors which may have been overlooked during my review of this note. Sometimes these errors may affect the content or meaning of a given sentence.
== END 2021-07-10 08:32 | disposition home or self-care (01) ==
LOC: HO.US 08:31
PROVIDERS: Visit Provider Advanced Practice Midwife
DX: Z34.92 Encounter for supervision of normal pregnancy, unspecified, second trimester (principal); Z36.3 Encounter for antenatal screening for malformations
CPT/HCPCS: 76816; 76820

== ENCOUNTER 2021-07-15 11:03 | Outpatient (REF) | payer MEDICAID, SELFPAY ==
[2021-07-15 13:16] LABS: Hematocrit 31.4 % (37.0-47.0); Hemoglobin 10.1 g/dl (12.0-16.0); Mean Corpuscular HGB Conc 32.2 g/dl (31.0-35.0); Mean Corpuscular Hemoglobin 28.1 pg (27.0-33.0); Mean Corpuscular Volume 87.5 fL (80.0-98.0); Mean Platelet Volume 9.9 fL (9.4-12.3); Platelet Count 299 X10*3/uL (160-400); Red Blood Count 3.59 X10*6/uL (4.20-5.50); Red Cell Distribution Width 12.6 % (11.0-16.0); White Blood Count 12.7 X10*3/uL (4.8-10.8)
[2021-07-15 13:33] LABS: Glucose 1 Hour PP 50gm Dose 107 mg/dL (60-140)
[2021-07-15 13:59] LABS: Syphilis Screen Nonreactive (Nonreactive)
== END 2021-07-15 11:04 | disposition home or self-care (01) ==
LOC: HO.LAB 11:03
PROVIDERS: Visit Provider Advanced Practice Midwife
DX: Z34.92 Encounter for supervision of normal pregnancy, unspecified, second trimester (principal)
CPT/HCPCS: 36415; 85027; 86780

== ENCOUNTER → 2021-07-22 11:17 | Outpatient (BNVA) | payer MEDICAID, SELFPAY | PROVIDERS: Visit Provider Advanced Practice Midwife | DX: O26.893 Other specified pregnancy related conditions, third trimester (principal); R12 Heartburn; K08.89 Other specified disorders of teeth and supporting structures; Z3A.28 28 weeks gestation of pregnancy | CPT/HCPCS: 99212 ==

== ENCOUNTER → 2021-08-06 11:10 | Outpatient (BNVA) | payer MEDICAID, SELFPAY | PROVIDERS: Visit Provider Advanced Practice Midwife | DX: O99.891 Other specified diseases and conditions complicating pregnancy (principal); Z3A.30 30 weeks gestation of pregnancy | CPT/HCPCS: 81003; 99212 ==

== ENCOUNTER → 2021-08-20 11:12 | Outpatient (BNVA) | payer MEDICAID, SELFPAY | PROVIDERS: Visit Provider Advanced Practice Midwife | DX: O99.891 Other specified diseases and conditions complicating pregnancy (principal); N87.0 Mild cervical dysplasia; B37.3 Candidiasis of vulva and vagina; Z3A.32 32 weeks gestation of pregnancy | CPT/HCPCS: 81003; 99212 ==

== ENCOUNTER → 2021-09-02 11:25 | Outpatient (BNVA) | payer MEDICAID, SELFPAY | PROVIDERS: Visit Provider Advanced Practice Midwife | DX: Z34.93 Encounter for supervision of normal pregnancy, unspecified, third trimester (principal) | CPT/HCPCS: 81003; 99212 ==

== ENCOUNTER 2021-09-17 10:51 | Outpatient (REF) | payer MEDICAID, SELFPAY ==
[2021-09-18 03:18] LABS: CT PCR NOT DETECTED (Not Detect.); NG PCR NOT DETECTED (Not Detect.)
== END 2021-09-17 10:52 | disposition home or self-care (01) ==
LOC: HO.LAB 10:51
PROVIDERS: Visit Provider Advanced Practice Midwife
DX: O99.820 Streptococcus B carrier state complicating pregnancy (principal); O99.323 Drug use complicating pregnancy, third trimester; F12.20 Cannabis dependence, uncomplicated; O99.513 Diseases of the respiratory system complicating pregnancy, third trimester; J30.2 Other seasonal allergic rhinitis; Z87.59 Personal history of other complications of pregnancy, childbirth and the puerperium; Z3A.36 36 weeks gestation of pregnancy
CPT/HCPCS: 81003; 87081; 87491; 87591; 99212

== ENCOUNTER → 2021-09-25 08:42 | Outpatient (BNVA) | payer MEDICAID, SELFPAY | PROVIDERS: Visit Provider Advanced Practice Midwife | DX: Z34.83 Encounter for supervision of other normal pregnancy, third trimester (principal); Z23 Encounter for immunization; Z3A.37 37 weeks gestation of pregnancy | CPT/HCPCS: 90471; 90715; 99212 ==

== ENCOUNTER → 2021-10-02 08:39 | Outpatient (BNVA) | payer MEDICAID, SELFPAY | PROVIDERS: Visit Provider Advanced Practice Midwife | DX: O98.813 Other maternal infectious and parasitic diseases complicating pregnancy, third trimester (principal); B37.3 Candidiasis of vulva and vagina; Z3A.38 38 weeks gestation of pregnancy | CPT/HCPCS: 99212 ==

== ENCOUNTER → 2021-10-09 10:55 | Outpatient (BNVA) | payer MEDICAID, SELFPAY | PROVIDERS: Visit Provider Advanced Practice Midwife | DX: O99.891 Other specified diseases and conditions complicating pregnancy (principal); N87.0 Mild cervical dysplasia | CPT/HCPCS: 99212 ==

== ENCOUNTER 2021-11-23 18:04 | Emergency (ER) | payer MEDICAID, SELFPAY ==
[2021-11-23 18:14] VITALS: BP 114/55; PULSE 72; RESP 16; TEMP 36.7; O2SAT 99; BMI 21.6
--- NOTE | 2021-11-24 00:05 | ED.LOWEXIN ---
HPI - Extremity Injury (Lower) General Chief Complaint: Extremity Injury, Lower Stated Complaint: severe leg pain Time Seen by Provider: 11/23/21 20:18 Source: patient Mode of arrival: ambulatory History of Present Illness HPI Narrative: 26-year-old female with a past medical history of amenorrhea presenting to the ED complaining of bilateral low back pain radiating down bilateral lower extremities x5 days. Reports pain is constant. Denies known injury, trauma, fall, heavy lifting, numbness, tingling, weakness, urinary incontinence/retention, fever, IVDA, hematuria, flank pain. Admits gave last month, is not currently Onset (ago): day(s) Severity: moderate Exacerbating factors: movement and palpation Other symptoms: none Related Data Previous Rx's Medication Instructions Recorded prenat.vits,sincere,[id number] 1 tab PO DAILY #30 tabs 02/16/21 ferrous sulfate 324 mg (65 mg 324 mg PO BID #60 tabs 07/15/21 iron) tablet,delayed release acetaminophen 500 mg tablet 500 mg PO Q6H PRN fever or pain 11/24/21 (Tylenol Extra Strength) #14 tabs cyclobenzaprine 5 mg tablet 5 mg PO Q8H PRN pain (scale score 11/24/21 7-10) 5 days #14 tabs lidocaine 5 % topical patch 1 patch topical DAILY PRN pain #30 11/24/21 (Lidoderm) ea naproxen 500 mg tablet 500 mg PO BID PRN pain 10 days #20 11/24/21 tabs Allergies Allergy/AdvReac Type Severity Reaction Status Date / Time No Known Allergies Allergy Verified 10/09/21 10:59 [No Known Allergies*] Review of Systems Review of Systems: Constitutional: No Weight loss, No Fever, No Chills ENT/Mouth: No Ear Pain, No Nasal Congestion, No sore throat, No Rhinorrhea, No Swallowing Difficulty Cardiovascular: No Chest Pain, No SOB Respiratory: No Cough, No Sputum, No Wheezing Gastrointestinal: No Nausea, No Vomiting, No Diarrhea, No Constipation, No Abdominal pain Genitourinary: No Dysuria, No Urinary Frequency, No Hematuria, No Urinary Incontinence/retention, No Urgency, No Flank Pain Musculoskeletal: + joint pain, No Myalgias, No Joint Swelling Skin: No Skin Lesions, No rash Neuro: No Weakness, No Numbness, No Paresthesias Yes all other systems are reviewed and are negative Constitutional: Constitutional: Reports as per HPI Neurologic: Denies Sensory deficit (Neuro) [facility] Past Medical History Attestation statement: The following information was validated with the patient. Medical History Amenorrhea Family History Family History Mother Heart problem Hx of diabetes mellitus Father Hypertension Maternal Grandmother Hx of diabetes mellitus Social History Social History Household Members: Children Alcohol intake: former Patient Tobacco Use Status: Never used Tobacco Substance Use Type: Marijuana Trauma History: none Special lenore needs: No Agree to transfusion: Yes Advance Directives: No Physical Exam Vital Signs: Vital Signs: Last Vital Signs Temp 98.0 F 11/23/21 18:14 Pulse 72 11/23/21 18:14 Resp 16 11/23/21 18:14 BP 114/55 L 11/23/21 18:14 Pulse Ox 99 11/23/21 18:14 O2 Del Method 11/23/21 18:14 BMI result Body Mass Index 21.6 Const: General: cooperative, healthy appearing and no acute distress Orientation/consciousness: patient oriented x3 Limitations: no limitations HEENT: Head: Yes normal to inspection and Yes atraumatic Ears: hearing grossly normal bilaterally General nose exam: Normal external nose present Face and sinus: Yes normal facial exam Eyes: General: appearance normal, both eyes and all related structures EOM: EOMs intact bilaterally Neck: Other: No midline cervical spinous tenderness Neck: Yes normal visual inspection and Yes no meningeal signs Resp: Effort & Inspection: normal respiratory effort and no respiratory distress Cardio: Rate: regular rate Heart sounds: S1 normal heart sound present and S2 normal heart sound present GI: Inspection: Yes normal to inspection Palpation (GI): Soft to palpation, nontender, no guarding and not rigid : General: Yes no CVA tenderness Back/Spine/Pelvis: Other: No midline thoracic/lumbar spinous tenderness/step-off or deformity. + bilateral lower lumbar/buttock tenderness to palpation reproducing subjective complaint. Back: no CVA tenderness Skin: Rashes: no rashes Wounds: no wounds Neuro: Other: Strength intact throughout. No saddle anesthesia. Sensation intact to light touch. Neurovascular intact distally General: patient oriented x3, gait normal, tone normal, moves all extremities, no meningeal signs and no focal motor deficits Gait exam (Neuro): Normal gait present Motor exam (neuro): 5/5 motor strength present throughout Sensory Exam: No Sensory deficit (Neuro) Extrem: General: Yes normal to inspection MDM - Extremity Injury (Lower) MDM Narrative Medical decision making narrative: 26-year-old female with a past medical history of amenorrhea presenting to the ED complaining of bilateral low back pain radiating down bilateral lower extremities x5 days. On exam vital signs stable, NAD, nontoxic appearing, physical exam as above, no midline spinous tenderness there or red flag symptoms. Concern for sciatica vs MSK pain/spasming vs strain. Low concern for renal stone/pyelo, epidural abscess or cauda equina Plan: Pain control, PCP follow-up Medical Records Attestation: I reviewed the patient's medical records. Lab Data Attestation: I reviewed the patient's lab results. Discharge Plan Discharge Clinical Impression: Acute low back pain, Sciatica, Low back pain Patient Disposition: Home, Self-Care Instructions: Sciatica (ED), Acute Low Back Pain (ED) Additional Instructions: Your pain is likely musculoskeletal/sciatica Flexeril is a muscle relaxer, take at night as it makes you drowsy, do not drive, drink alcohol, or operate machinery while taking it Naproxen as an anti-inflammatory / pain medication, take with food Lidoderm patches are numbing patches, apply to painful area In addition take Tylenol at home If symptoms persist or worsen, pain becomes unbearable, you developed urinary retention or incontinence, or weakness return to the ED Prescriptions: New acetaminophen [Tylenol Extra Strength] 500 mg tablet 500 mg PO Q6H PRN (Reason: fever or pain) Qty: 14 0RF lidocaine [Lidoderm] 5 % adhesive patch,medicated 1 patch topical DAILY MDD remove after 12 hours PRN (Reason: pain) Qty: 30 0RF Rx Instructions: leave on most painful area for up to 12 hrs naproxen 500 mg tablet 500 mg PO BID PRN (Reason: pain) 10 Days Qty: 20 0RF cyclobenzaprine 5 mg tablet 5 mg PO Q8H PRN (Reason: pain (scale score 7-10)) 5 Days Qty: 14 0RF No Action ferrous sulfate 324 mg (65 mg iron) tablet,delayed release (DR/EC) 324 mg PO BID Qty: 60 5RF prenat.vits,sincere,[id number] Tablet 1 tab PO DAILY Qty: 30 0RF Referrals: Physician,None [Primary Care Provider] -
[2021-11-24] MEDS: Lidocaine 4 % Patch ADH..PATCH 1 PATCH TRANSDERMA (00:52)
[2021-11-24] MEDS: Cyclobenzaprine HCl 5 MG TABLET PO (00:52)
[2021-11-24] MEDS: Ketorolac Tromethamine 30 MG/ML VIAL IM (00:53)
[2021-11-24 00:58] VITALS: BP 112/76; PULSE 61; RESP 16; TEMP 36.1; O2SAT 100
== END 2021-11-24 01:02 | disposition home or self-care (01) ==
PROVIDERS: Emergency Provider Internal Medicine
DX: M54.42 Lumbago with sciatica, left side (principal); M54.41 Lumbago with sciatica, right side; F12.90 Cannabis use, unspecified, uncomplicated; Z39.2 Encounter for routine postpartum follow-up
CPT/HCPCS: 96372; 99212; 99284; J1885

== ENCOUNTER 2022-01-08 09:25 | Emergency (ER) | payer MEDICAID, SELFPAY ==
--- NOTE | ~2022-01-08 | US_ITS ---
EXAMINATION: US OBSTETRICAL ULTRASOUND CLINICAL INFORMATION: Vaginal bleeding. Lower abdominal pain COMPARISON: The prior OB ultrasound was from a previous .. TECHNIQUE: Transabdominal and endovaginal sonography FINDINGS: There is no evidence for an intrauterine gestation. No evidence for intrauterine pole, yolk sac course gestational sac. The endometrial complex measures 8.5 mm. No focal uterine masses. Uterus measures 97 mm in length. There is a small amount of fluid in the cul-de-sac, particularly near the right adnexa. The right ovary measures 31 x 21 x 19 mm. The left ovary measures 38 x 21 x 27 mm and contains a physiologic cyst at 17 x 18 x 19 mm. Ill-defined mixed cystic and solid material at 16 mm transverse in the right adnexa noted with peripheral vascularity. Ectopic gestation is not excluded however this does need to be carefully correlated with the patient's serial quantitative beta-hCG. US/US OB pelvic and transvaginal IMPRESSION: No evidence for IUP. Abnormal appearing right adnexa. Please see comments and discussion. Recommend short-term follow-up with quantitative beta hCG and ultrasound. This can be done in 48 hours.
[2022-01-08 09:29] VITALS: BP 110/55; PULSE 70; RESP 18; TEMP 36.7; O2SAT 99; BMI 22.4
--- NOTE | 2022-01-08 10:10 | ED_ITS ---
HPI - General Adult General Chief complaint: Vaginal Bleeding Stated complaint: bleeding/lower abd pain/ Time Seen by Provider: 01/08/22 09:43 Source: patient Mode of arrival: ambulatory Limitations: no limitations History of Present Illness HPI narrative: 26-year-old female presents to ED for vaginal bleeding/blood clots and 4 positive test at home since last week. Patient states she gave in October but admits to unprotected sexual activity with her . Patient states mild lower abdominal cramping. Related Data Previous Rx's Medication Instructions Recorded cyclobenzaprine 5 mg tablet 5 mg PO Q8H PRN pain (scale score 11/24/21 7-10) 5 days #14 tabs lidocaine 5 % topical patch 1 patch topical DAILY PRN pain #30 11/24/21 (Lidoderm) ea medroxyprogesterone 150 mg/mL 150 mg IM Q12W #1 mL 11/24/21 intramuscular suspension (Depo-Provera) naproxen 500 mg tablet 500 mg PO BID PRN pain 10 days #20 11/24/21 tabs Allergies Allergy/AdvReac Type Severity Reaction Status Date / Time No Known Allergies Allergy Verified 11/24/21 15:18 [No Known Allergies*] Review of Systems Review of Systems: Lower abdominal cramping. Vaginal bleeding Yes all other systems are reviewed and are negative PMFSH Past Medical History Medical History Amenorrhea Family History Family History Mother Heart problem Hx of diabetes mellitus Father Hypertension Maternal Grandmother Hx of diabetes mellitus Social History Social History Household Members: Children Alcohol intake: former Patient Tobacco Use Status: Never used Tobacco Substance Use Type: Marijuana Trauma History: none Special lenore needs: No Agree to transfusion: Yes Physical Exam ED Vital Signs: Vital Signs - 24 hr 01/08/22 09:29 01/08/22 11:53 01/08/22 17:04 Temperature 98.0 F Pulse Rate 70 70 76 Respiratory Rate 18 19 14 Blood Pressure 110/55 L 116/75 122/76 Pulse Oximetry 99 100 98 Oxygen Delivery Method Nasal Cannula Room Air BMI result Body Mass Index 22.4 Const General: cooperative, healthy appearing, comfortable, no acute distress, well developed, alert, awake and Physically active Orientation/consciousness: oriented to time and patient oriented x3 [facility] Head: Yes normal to inspection, Yes No palpable skull fracture present, Yes normocephalic, Yes atraumatic and No abrasion Eyes General: appearance normal, both eyes and all related structures Neck Neck: Yes normal visual inspection, Yes full ROM, Yes no lymphadenopathy, Yes no meningeal signs, Yes trachea midline, Yes supple, No anterior neck swelling and No tender Chest Chest palpation & inspection: normal inspection of the chest and normal palpation of entire chest wall Resp Effort & Inspection: normal respiratory effort and able to speak in complete sentences Auscultation: clear to auscultation bilaterally Cardio Jugular venous distension: no JVD Heart sounds: S1 normal heart sound present and S2 normal heart sound present GI Inspection: Yes normal to inspection and No abdominal wall ecchymosis Palpation (GI): Soft to palpation, not firm, nontender, no guarding and not rigid General: No CVA tenderness and Yes no CVA tenderness Back/Spine/Pelvis Back: no CVA tenderness, No CVA tenderness and No back tenderness Skin General skin exam: no rashes or lesions noted and elasticity normal Neuro General: oriented to time, patient oriented x3, gait normal, no meningeal signs and CN's II-XI intact bilaterally Cranial nerves: Yes CN's II-XII intact bilaterally Extrem General: Yes normal to inspection and Yes full ROM Psych Appearance: grossly normal, well kempt and not disheveled Course Course Course Narrative: Patient will have labs drawn test and ultrasound ordered. Reevaluation(s) Reevaluation #1: Labs ordered baseline normal. Vital signs stable. Ultrasound negative for IUP which shows fluid in cul-de-sac right ovarian structure. May be early ectopic . Dr. Das really was aware and came to the ED to be evaluated the patient. He was called back to the OR and informed he will come back to evaluate patient Time: 13:40 Reevaluation #2: Dr. Das evaluated patient and recommended methoxetrate and discharge. He recommends patient return to the ED Tuesday morning for repeat hCG. Also states patient has a follow-up in his clinic for repeat hCG. Patient vital signs stable. MEthoxetrate ordered. Time: 14:35 Medical Decision Making MDM Narrative Medical decision making narrative: Rule out ectopic Lab Data Result diagrams: 01/08/22 10:03 01/08/22 10:03 Labs: Lab Results 01/08/22 01/08/22 01/08/22 Range/Units 10:03 10:03 10:03 WBC 7.0 (4.8-10.8) X10*3/uL RBC 4.58 D (4.20-5.50) X10*6/uL Hgb 12.5 D (12.0-16.0) g/dl Hct 38.2 D (37.0-47.0) % MCV 83.4 (80.0-98.0) fL MCH 27.3 (27.0-33.0) pg MCHC 32.7 (31.0-35.0) g/dl RDW 14.7 (11.0-16.0) % Plt Count 343 (160-400) X10*3/uL MPV 9.5 (9.4-12.3) fL Immature Gran % (Auto) 0.3 (0.0-0.4) % Neut % (Auto) 62.6 (45-73) % Lymph % (Auto) 24.0 (20-40) % Simpson % (Auto) 10.4 (2-11) % Eos % (Auto) 2.3 (0-4) % Baso % (Auto) 0.4 (0-2) % Lymph # (Auto) 1.7 (1.2-4.9) X10*3/uL Simpson # (Auto) 0.7 (0.1-1.2) X10*3/uL Eos # (Auto) 0.2 (0.0-0.4) X10*3/uL Baso # (Auto) 0.0 (0.0-0.2) X10*3/uL Abs Immat Gran (auto) 0.02 (0.00-0.03) X10*3/uL Absolute Neuts (auto) 4.4 (2.0-8.3) x10*3/uL Absolute Nucleated RBC 0.000 (0.0-0.012) X10*3/uL Nucleated RBC % (auto) 0.0 (0.0-0.2) /100WBC PT 11.9 (10.0-13.1) SEC INR 1.0 (0.9-1.1) APTT 29.0 (26.0-36.4) SEC Sodium 138 (135-145) mmol/L Potassium 4.2 (3.3-5.1) mmol/L Chloride 106 (96-108) mmol/L Carbon Dioxide 24 (22-29) mmol/L Anion Gap 12 (12-20) BUN 8 L (9-16) mg/dL Creatinine 0.82 (0.5-1.4) mg/dL Estim Creat Clear Calc 91.9 Estimated GFR > 60 Random Glucose 90 (60-115) mg/dL Calcium 9.1 (8.4-10.2) mg/dL Total Bilirubin 0.6 (0.0-1.0) mg/dL AST 11 (5-31) U/L ALT 6 (0-31) U/L Alkaline Phosphatase 68 (39-117) U/L Total Protein 7.3 (6.5-8.0) g/dL Albumin 4.5 (3.5-5.0) g/dL Beta HCG, Quant 3818 mIU/mL Urine Color Urine Appearance Urine pH (5.0-9.0) Ur Specific [place] (1.005-1.025) Urine Protein (Neg-Trace) mg/dL Urine Glucose (UA) (Negative) mg/dL Urine Ketones (Negative) mg/dL Urine Blood (Negative) Urine Nitrite (Negative) Ur Leukocyte Esterase (Negative) Urine RBC (0-2) /HPF Urine WBC (0-5) /HPF Ur Squamous Epith Cells (0-2) /HPF Urine Bacteria (None Seen) Hyaline Casts (0-2) /LPF Urine Test (NEGATIVE) Blood Type 01/08/22 01/08/22 01/08/22 Range/Units 10:03 10:03 10:04 WBC (4.8-10.8) X10*3/uL RBC (4.20-5.50) X10*6/uL Hgb (12.0-16.0) g/dl Hct (37.0-47.0) % MCV (80.0-98.0) fL MCH (27.0-33.0) pg MCHC (31.0-35.0) g/dl RDW (11.0-16.0) % Plt Count (160-400) X10*3/uL MPV (9.4-12.3) fL Immature Gran % (Auto) (0.0-0.4) % Neut % (Auto) (45-73) % Lymph % (Auto) (20-40) % Simpson % (Auto) (2-11) % Eos % (Auto) (0-4) % Baso % (Auto) (0-2) % Lymph # (Auto) (1.2-4.9) X10*3/uL Simpson # (Auto) (0.1-1.2) X10*3/uL Eos # (Auto) (0.0-0.4) X10*3/uL Baso # (Auto) (0.0-0.2) X10*3/uL Abs Immat Gran (auto) (0.00-0.03) X10*3/uL Absolute Neuts (auto) (2.0-8.3) x10*3/uL Absolute Nucleated RBC (0.0-0.012) X10*3/uL Nucleated RBC % (auto) (0.0-0.2) /100WBC PT (10.0-13.1) SEC INR (0.9-1.1) APTT (26.0-36.4) SEC Sodium (135-145) mmol/L Potassium (3.3-5.1) mmol/L Chloride (96-108) mmol/L Carbon Dioxide (22-29) mmol/L Anion Gap (12-20) BUN (9-16) mg/dL Creatinine (0.5-1.4) mg/dL Estim Creat Clear Calc Estimated GFR Random Glucose (60-115) mg/dL Calcium (8.4-10.2) mg/dL Total Bilirubin (0.0-1.0) mg/dL AST (5-31) U/L ALT (0-31) U/L Alkaline Phosphatase (39-117) U/L Total Protein (6.5-8.0) g/dL Albumin (3.5-5.0) g/dL Beta HCG, Quant mIU/mL Urine Color Yellow Urine Appearance Clear Urine pH 5.5 (5.0-9.0) Ur Specific [place] 1.025 (1.005-1.025) Urine Protein Negative (Neg-Trace) mg/dL Urine Glucose (UA) Negative (Negative) mg/dL Urine Ketones Negative (Negative) mg/dL Urine Blood Moderate (2+) H (Negative) Urine Nitrite Negative (Negative) Ur Leukocyte Esterase Negative (Negative) Urine RBC >20 H (0-2) /HPF Urine WBC 0-5 (0-5) /HPF Ur Squamous Epith Cells 3-5 (0-2) /HPF Urine Bacteria None Seen (None Seen) Hyaline Casts 0-2 (0-2) /LPF Urine Test POSITIVE H (NEGATIVE) Blood Type A Positive Discharge Plan Discharge Clinical Impression: Ectopic Patient Disposition: Home, Self-Care Instructions: Ectopic (DC) Additional Instructions: Deber? regresar al servicio de urgencias el lunes para repetir el an?lisis de stefano de beta hCG. Tambi?n debe hacer un seguimiento con el Dr. Das E el nick para repetir el an?lisis de stefano de beta hCG. Regrese al servicio de urgencias de inmediato si presenta dolor abdominal, empeoramiento del sangrado vaginal, dolor tor?cico, dificultad para respirar, debilidad, mareos o cualquier otro s?ntoma preocupante. Prescriptions: No Action lidocaine [Lidoderm] 5 % adhesive patch,medicated 1 patch topical DAILY MDD remove after 12 hours PRN (Reason: pain) Qty: 30 0RF Rx Instructions: leave on most painful area for up to 12 hrs naproxen 500 mg tablet 500 mg PO BID PRN (Reason: pain) 10 Days Qty: 20 0RF cyclobenzaprine 5 mg tablet 5 mg PO Q8H PRN (Reason: pain (scale score 7-10)) 5 Days Qty: 14 0RF medroxyprogesterone [Depo-Provera] 150 mg/mL suspension 150 mg IM Q12W Qty: 1 5RF Rx Instructions: q12 w, Referrals: Brandt Das MD [Physician] - (Rule out ectopic ) Stand Alone Forms: Work/School Release Interventions: ED Discharge Assessment Last Done: 01/08/22 17:04 Discharge Date/Time: 01/08/22 17:05 Print Language: Chilean
[2022-01-08] MEDS: 0.9 % Sodium Chloride 1,000 ML 999 ML IV (10:11)
[2022-01-08 10:20] LABS: MANUAL DIFF FLAG NO
[2022-01-08 10:24] LABS: Appearance Urine Clear; Color Urine Yellow; Glucose Urine UA Negative (Negative); Leukocyte Esterase Urine Negative (Negative); Nitrite Urine Negative (Negative); PH 5.5 (5.0-9.0); Specific Gravity - Urine 1.025 (1.005-1.025); Urine Blood Moderate (2+) (Negative); Urine Ketones Negative (Negative); Urine Protein Negative (Neg-Trace)
[2022-01-08 10:25] LABS: Basophils Percent Auto 0.4 % (0-2); Eosinophils Absolute Auto 0.2 X10*3/uL (0.0-0.4); Eosinophils Percent Auto 2.3 % (0-4); Hematocrit 38.2 % (37.0-47.0); Hemoglobin 12.5 g/dl (12.0-16.0); Imm Gran Abs Auto 0.02 X10*3/uL (0.00-0.03); Imm Gran Pct Auto 0.3 % (0.0-0.4); Lymphocytes Absolute Auto 1.7 X10*3/uL (1.2-4.9); Mean Corpuscular HGB Conc 32.7 g/dl (31.0-35.0); Mean Corpuscular Hemoglobin 27.3 pg (27.0-33.0); Mean Corpuscular Volume 83.4 fL (80.0-98.0); Mean Platelet Volume 9.5 fL (9.4-12.3); Monocytes Absolute Auto 0.7 X10*3/uL (0.1-1.2); Monocytes Percent Auto 10.4 % (2-11); Neutrophils Absolute Auto 4.4 x10*3/uL (2.0-8.3); Neutrophils Percent Auto 62.6 % (45-73); Platelet Count 343 X10*3/uL (160-400); Red Blood Count 4.58 X10*6/uL (4.20-5.50); Red Cell Distribution Width 14.7 % (11.0-16.0)
[2022-01-08 10:28] LABS: Prothrombin Time 11.9 SEC (10.0-13.1); UPreg QC Valid YES; Urine Pregnancy POSITIVE (NEGATIVE)
[2022-01-08 10:30] LABS: Bacteria Urine None Seen (None Seen); Hyaline Casts Urine 0-2 /LPF (0-2); RBC Urine >20 /HPF (0-2); WBC Urine 0-5 /HPF (0-5)
[2022-01-08 10:44] LABS: Alanine Aminotransferase 6 U/L (0-31); Albumin Level 4.5 g/dL (3.5-5.0); Alkaline Phosphatase 68 U/L (39-117); Anion Gap 12 (12-20); Aspartate Amino Transferase 11 U/L (5-31); Bilirubin Total 0.6 mg/dL (0.0-1.0); Blood Urea Nitrogen 8 mg/dL (9-16); Calcium 9.1 mg/dL (8.4-10.2); Carbon Dioxide 24 mmol/L (22-29); Chloride 106 mmol/L (96-108); Creatinine Clr Calc Pharmacy 91.9; Estimated Glomerular Filt Rate > 60; Glucose Random 90 mg/dL (60-115); Potassium 4.2 mmol/L (3.3-5.1); Sodium 138 mmol/L (135-145); Total Protein 7.3 g/dL (6.5-8.0)
[2022-01-08 10:51] LABS: HCG Quantitative 3818 mIU/mL
[2022-01-08 11:53] VITALS: BP 116/75; PULSE 70; RESP 19; O2SAT 100
--- NOTE | 2022-01-08 13:38 | PC.NURSE ---
nad, no complaints, denies pain, talking on phone, Dr Das came to the ED and will return shortly to do pelvic exam, pt is on pelvic stretcher and supplies are being set up
--- NOTE | 2022-01-08 14:51 | PM.GYNCN ---
APPLICATION DEFENSE MANAGER - CN: HPI Data of Consult Consult date: 01/08/22 Primary Care Provider: None Physician Consult Narrative Narrative: I was consulted Fabiana Martinez who is a 26 year old female who presented emergency room complaining of vaginal bleeding/blood clots with minimal pelvic cramping no abdominal/pelvic pain . The patient took multiple urine home tests and roller turner positive is last week.? The patient is few months delivered in October 2021 . In the emergency room the following workup was done: CBC, AST/ALT, creatinine all within normal. HCG was 3818, Rh positive. Ultrasound showed no IUP with ill-defined mixed cystic and solid material at 16 mm transverse in the right adnexa noted with peripheral vascularity. Ectopic gestation is not excluded however this does need to be carefully correlated with the patient's serial quantitative beta-hCG. cc:: CC: MOBILE GAME ENGINEER - Review of Systems Review of Systems ROS Unobtainable: All systems reviewed & are unremarkable except as noted in HPI and below Cardiovascular: Denies Palpatations, Loss of consciousness or Chest pain Respiratory: Denies Cough, Wheezing or Shortness of breath Musculoskeletal: Denies Low back pain Gastrointestinal: Denies Heartburn, Constipation, Diarrhea, Nausea or Vomiting Genitourinary: Denies Pain with urination, Burning with urination or Urinary frequency Neurological: Denies Migranes Psychological: Denies Depression OB PMFSH Past Medical History Medical History Amenorrhea Family History Family History Mother Heart problem Hx of diabetes mellitus Father Hypertension Maternal Grandmother Hx of diabetes mellitus Social History Social History Household Members: Children Alcohol intake: former Patient Tobacco Use Status: Never used Tobacco Substance Use Type: Marijuana Trauma History: none Special lenore needs: No Agree to transfusion: Yes Advance Directives: No Advance Directives Information Provided: Yes Meds Allergies Allergy/AdvReac Type Severity Reaction Status Date / Time No Known Allergies Allergy Verified 11/24/21 15:18 [No Known Allergies*] Active Medications: Current Medications Methotrexate (Methotrexate Sodium 50 Mg/2 Ml Vial) 84 mg 50 mg/m2 (84 mg) IM ONCE ONE Stop: 01/08/22 15:01 APPLICATION DEFENSE MANAGER Physical Exam Vitals Vital signs: Temp Pulse Resp BP Pulse Ox O2 Del Method 98.0 F 70 19 116/75 100 01/08/22 09:29 01/08/22 11:53 01/08/22 11:53 01/08/22 11:53 01/08/22 11:53 01/08/22 11:53 BMI result Body Mass Index 22.4 Constitutional General Appearance: Healthy appearing, Well-nourished and Well-developed Psychiatric Mood and Affect: active and alert, normal mood and normal affect Skin Appearance: No rashes and No lesions Lungs Respiratory Effort: No intercostal retractions Auscultation: Clear to auscultation Cardiovascular Auscultation: RRR Abdomen Auscultation/Inspection/Palpation: Normal bowel sounds, Soft, Non-distended and No tenderness Female Genitalia (Pelvic) Bladder/Urethra: Normal meatus Cervix: Grossly normal Uterus: Normal size Adnexa/Parametria: Adnexal Tenderness: None, Adnexal Mass: None, Parametrial Tenderness: None and Parametrial Mass: None Additional Comments: Minimal blood per vagina APPLICATION DEFENSE MANAGER - Results Labs CBC & Chem 7: 01/08/22 10:03 01/08/22 10:03 Labs: Short CBC 01/08/22 Range/Units 10:03 WBC 7.0 (4.8-10.8) X10*3/uL Hgb 12.5 D (12.0-16.0) g/dl Hct 38.2 D (37.0-47.0) % Plt Count 343 (160-400) X10*3/uL BMP 01/08/22 10:03 Sodium 138 Potassium 4.2 Chloride 106 Carbon Dioxide 24 BUN 8 L Creatinine 0.82 Calcium 9.1 Liver Function 01/08/22 Range/Units 10:03 Total Bilirubin 0.6 (0.0-1.0) mg/dL AST 11 (5-31) U/L ALT 6 (0-31) U/L Alkaline Phosphatase 68 (39-117) U/L Albumin 4.5 (3.5-5.0) g/dL Urine 01/08/22 01/08/22 Range/Units 10:03 10:03 Urine Color Yellow Urine Appearance Clear Urine pH 5.5 (5.0-9.0) Ur Specific [place] 1.025 (1.005-1.025) Urine Protein Negative (Neg-Trace) mg/dL Urine Glucose (UA) Negative (Negative) mg/dL Urine Test POSITIVE H (NEGATIVE) Imaging CT scan - pelvis: Radiologist's impression: ITS Impressions Pelvic/Transvag US 01/08/22 11:37 IMPRESSION: No evidence for IUP. Abnormal appearing right adnexa. Please see comments and discussion. Recommend short-term follow-up with quantitative beta hCG and ultrasound. This can be done in 48 hours. Assessment and Plan (1) Ectopic : Status: Acute Plan Discussed with the patient the findings on ultrasound 1.6 cm right adnexal mass solid with vascularity ectopic cannot be ruled out with no evidence of intrauterine , also discussed the patient the level of HCG above 3500 with no evidence of intrauterine gestation is highly suspicion of ectopic , although early SAB nonviable intrauterine or a viable intrauterine is still a possibility. Discussed with the patient treatment options including the following: Option 1, expected management, repeat HCG every 48 hours with warning signs of SAB versus ectopic, till the clinical picture is more clear for the diagnosis of ectopic versus intrauterine with the risk of delaying diagnosis of an ectopic intra-abdominal rupture and bleeding and risk of morbidity mortality and benefit of avoiding methotrexate treatment and its possible exposure of a possible intrauterine and risk of teratogenicity and SAB. Option 2, to start with Suction D and C to rule out intrauterine followed by HCG levels and determined SAB versus ectopic, the risk of this approach being termination of a live intrauterine that is early undetected by ultrasound, the risk being delayed diagnosis of ectopic and/or potential consequences. Ooption 3, is methotrexate treatment; All the pros and cons risks and benefits of this approach were discussed with the patient including but not limited to, failure rate of MTX ~15%, possible exposure of methotrexate teratogenicity to an early intrauterine not diagnosed by ultrasound with the risk of SAB and severe deformities, possibility of a early intrauterine . The patient decided to proceed with methotrexate treatment. Discussed with the patient the common side effects of the medication, including skin rash, sensitivity to the sun, indigestion, nausea, sore mouth were discussed with the patient. Less common side effects (occurring in less than 2% of patients) were also discussed a drop in blood cell counts or temporary elevation in liver enzymes. All questions were answered and recommended follow up reviewed. Methotrexate 50 mg/m2 BSA. Patient information sheet was given to the patient and instructed patient not to have intercourse or perform strenuous exercises or activities avoid sun exposure and to oncology for lab orders including CBC platelets liver function and creatinine if negative next step patient will be given methotrexate treatment in the emergency room. The patient was given to the instructions to follow up with HG day 4 (in the emergency room since it is holiday) and 7 and follow with an appointment day 7. Signs and symptoms of ruptured ectopic discussed with the patient, she is to call or go to the ER if abdominal pain occurs, Otherwise will follow up with HCG day 4 and repeat HCG day 7 with a follow-up appointment. All questions were answered pt verbalized understanding. The Communication with the patient was through hospital certified official court interpreter service. The case was discussed with SEAN Koo in the emergency room. This note was generated with a voice recognition program. Some errors may have been overlooked during the review of this note. Sometimes these errors may affect the content or meaning of a given sentence.
[2022-01-08] MEDS: METHOTREXATE SODIUM 50 MG/2 ML 84 MG IM (16:03)
[2022-01-08 17:04] VITALS: BP 122/76; PULSE 76; RESP 14; O2SAT 98
[2022-01-08 18:31] LABS: CT PCR NOT DETECTED (Not Detect.); NG PCR NOT DETECTED (Not Detect.)
[2022-01-09 11:46] LABS: BV Int Neg Control Negative (Negative); BV Int Pos Control Positive (Positive)
== END 2022-01-08 17:05 | disposition home or self-care (01) ==
PROVIDERS: Physician Assistant; Emergency Provider Emergency Medicine
DX: O00.90 Unspecified ectopic pregnancy without intrauterine pregnancy (principal); Z79.899 Other long term (current) drug therapy
CPT/HCPCS: 36415; 76801; 76817; 80053; 81001; 81025; 84702; 85025; 85610; 85730; 86900; 86901; 87480; 87491; 87510; 87591; 87660; 96372; 99283; 99284; J9250

== ENCOUNTER 2022-01-12 14:16 | Outpatient (REF) | payer MEDICAID, SELFPAY ==
[2022-01-12 15:17] LABS: HCG Quantitative 4827 mIU/mL
== END 2022-01-12 14:17 | disposition home or self-care (01) ==
LOC: HO.LAB 14:16
PROVIDERS: Visit Provider Obstetrics & Gynecology
DX: O00.90 Unspecified ectopic pregnancy without intrauterine pregnancy (principal); Z3A.01 Less than 8 weeks gestation of pregnancy
CPT/HCPCS: 36415; 84702

== ENCOUNTER 2022-01-14 08:54 | Outpatient (REF) | payer MEDICAID, SELFPAY ==
--- NOTE | ~2022-01-14 | US_ITS ---
EXAMINATION: US OBSTETRICAL ULTRASOUND CLINICAL INFORMATION: Unspecified ectopic . Post methotrexate 01/08/2022 COMPARISON: Ultrasound OB 01/08/2022. TECHNIQUE: Transabdominal and transvaginal imaging pelvis is performed. FINDINGS: There is there is no intrauterine uterine . There is a small complex fluid in the pelvis. Again visualized is a complex structure in the right adnexa medial to the right ovary with peripheral vascularity now measuring 6.2 x 1.9 x 1.9 cm. Previously it measured 3.5 x 1.7 x 1.6 cm. Patient was recently treated with methotrexate on 01/08/2022. Minimal fluid in the cervix. Endometrial thickness is 0.52 cm. No fluid or sac in endometrial canal. The right ovary measures 3.6 x 1.9 x 3.2 cm and appears unremarkable. The left ovary measures 2.8 x 2.1 x 2.6 cm. There is small corpus luteal cyst measuring 1.8 x 1.7 x 1.6 cm. US/US OB pelvic and transvaginal IMPRESSION: Complex structure in the right adnexa most suggestive of an ectopic. Post methotrexate 01/08/2022 the lesion has slightly increased in size measuring 6.2 cm compared to 3.5 cm on the previous exam. Complex fluid in the cul-de-sac, likely hemorrhagic.
[2022-01-14 10:20] LABS: HCG Quantitative 4506 mIU/mL
[2022-01-14 11:58] LABS: Hematocrit 34.7 % (37.0-47.0); Hemoglobin 11.5 g/dl (12.0-16.0); Mean Corpuscular HGB Conc 33.1 g/dl (31.0-35.0); Mean Corpuscular Hemoglobin 27.7 pg (27.0-33.0); Mean Corpuscular Volume 83.6 fL (80.0-98.0); Mean Platelet Volume 9.8 fL (9.4-12.3); Platelet Count 298 X10*3/uL (160-400); Red Blood Count 4.15 X10*6/uL (4.20-5.50); Red Cell Distribution Width 14.1 % (11.0-16.0); White Blood Count 6.6 X10*3/uL (4.8-10.8)
[2022-01-14 12:10] LABS: Alanine Aminotransferase 8 U/L (0-31); Albumin Level 4.5 g/dL (3.5-5.0); Alkaline Phosphatase 64 U/L (39-117); Aspartate Amino Transferase 11 U/L (5-31); Bilirubin Direct 0.2 mg/dL (0.0-0.5); Bilirubin Total 0.4 mg/dL (0.0-1.0); Estimated Glomerular Filt Rate > 60; Total Protein 7.3 g/dL (6.5-8.0)
--- NOTE | 2022-01-14 12:43 | HO.ANESPROP2 ---
HPI - Anesthesia Eval Consult details Narrative: 26 yo female patient with ectopic , for Right salpingectomy PMFSH Active Problems Active Problems: All Active Problems (Updated 01/09/22 @ 00:01 by Nikky Huddleston) Ectopic (Acute)- Seen in ED 01/08/22. Had methotrexate. No decrease in hcg Encounter for care after hospital delivery (Acute) Encounter for female control (Acute) Acute low back pain (Acute) Yeast infection of the vagina (Acute) Seasonal allergic reaction (Acute) Encounter for supervision of normal in third trimester (Acute) Encounter for screening for malformation using ultrasound (Acute) Early stage of (Acute) Dysplasia of cervix, low grade (JASKARAN 1) (Acute) Anovulatory amenorrhea (Acute) Past Medical History Medical History Amenorrhea Family History Family History Mother Heart problem Hx of diabetes mellitus Father Hypertension Maternal Grandmother Hx of diabetes mellitus Family history of problems with anesthesia: No Surgical History History of Problems with Anesthesia: No (Epidural for childbirth) Social History Social History (Updated 01/14/22 @ 13:40 by Kira Cabello MD) Household Members: Children Alcohol intake: former Patient Tobacco Use Status: Never used Tobacco Use of substances other than those prescribed or required for medical reasons: Yes Substance Use Type: Marijuana Substance Use Frequency: Occasionally Last Used Substance: Hours (ago) Trauma History: none Special lenore needs: No Agree to transfusion: Yes Are you DNR?: No Advance Directives: No Advance Directives Information Provided: Yes Meds Allergies Allergy/AdvReac Type Severity Reaction Status Date / Time No Known Allergies Allergy Verified 01/14/22 13:23 [No Known Allergies*] Home Medications Medication Instructions Recorded Confirmed Last Taken Type No Known Home Meds 01/14/22 01/14/22 Unknown History Exam Exam Date and Time: January 14, 2022 1243 Pertinent Lab Results Pertinent Lab Results: Laboratory Tests 01/14/22 01/14/22 01/14/22 09:02 11:46 11:46 WBC 6.6 RBC 4.15 L Hgb 11.5 L Hct 34.7 L MCV 83.6 MCH 27.7 MCHC 33.1 RDW 14.1 Plt Count 298 MPV 9.8 Absolute Nucleated RBC 0.000 Nucleated RBC % (auto) 0.0 Creatinine 0.79 Estim Creat Clear Calc Not Reportable Estimated GFR > 60 Total Bilirubin 0.4 Direct Bilirubin 0.2 AST 11 ALT 8 Alkaline Phosphatase 64 Total Protein 7.3 Albumin 4.5 Beta HCG, Quant 4506 Airway Mallampati Class: I TM Dist: >3cm Neck ROM: Full Loose/Missing/Broken Teeth: No (No broken or loose teeth) Heart: RRR Lungs: CTAB Assessment and Plan Assessment Anesthesia Assessment: Anesthesia Plan Discussed and Chart Reviewed Final Anesthetic Review Family History of Problems with Anesthesia: No History of Problems with Anesthesia: No (Epidural for childbirth) NPO: Yes ASA Class: II and Emergency Final Preanesthetic Review: No Changes in Pt Med Stat, Meds/Allgs Chart Reviewed, Consent Obtained/Reviewed and Anes Risks/Benef Reviewed Patient Risk: Low Procedure Risk: Low Assessment/Block/Sedation in SS: Assess/Block/Sedation-SS Anesthetic Plan Anesthetic Plan: GA Disposition: Standard PACU
== END 2022-01-14 08:55 | disposition home or self-care (01) ==
LOC: HO.US 08:54
PROVIDERS: Visit Provider Obstetrics & Gynecology
DX: O00.90 Unspecified ectopic pregnancy without intrauterine pregnancy (principal)
CPT/HCPCS: 36415; 76801; 76817; 80076; 82565; 84702; 85027; 99212; J1100; J1170; J2250; J2405; J3010

== ENCOUNTER 2022-01-14 13:07 | Day surgery (SDC) | payer MEDICAID, SELFPAY ==
[2022-01-14] VITALS (12 sets, daily range): BP systolic 98–123; BP diastolic 61–76; PULSE 59–105; RESP 12–18; TEMP 36.7–36.8; O2SAT 100; BMI 22.4
[2022-01-14] MEDS: Lactated Ringers 1,000 ML 100 ML IVCONT (14:05)
--- NOTE | 2022-01-14 15:12 | P.BOP_ITS ---
Brief Operative Note Date of Service: 01/14/22 Pre-op diagnosis: Right ectopic tubal Post-op diagnosis: same (With 30 cc of hemoperitoneum) Procedure: Laparoscopic right partial salpingectomy Surgeon: Brandt Das MD Anesthesia: GETA Was an Steam Pressure Chamber Operator used for this Procedure?: No Estimated blood loss (mL): 0 Pathology: other (Right partial fallopian tube with ectopic tubal ) Condition: stable Disposition: PACU
--- NOTE | 2022-01-14 15:13 | P.OP_ITS ---
Operative Note Operative Note Date of Service: 01/14/22 Narrative: PREOPERATIVE DIAGNOSIS:?R tubal ectopic POSTOPERATIVE DIAGNOSIS:? 6 cm right ecotpic filling up most of the tubal length with bluish discoloration, 30 cc of hemoperitoneum Procedure: Right partial salpingectomy QBL: Minimal Anesthesia: GETA SURGEON:? Brandt Das MD?? Pressed Or Blown Glass Worker:None Complications: None Pathology: Right partial Fallopian tube? DESCRIPTION OF PROCEDURE:?The patient was taken to the OR where general anesthesia was easily obtained. The patient was then prepped and draped in a sterile fashion and placed in dorsal lithotomy position. A speculum was introduced into the patient?s vagina for cervical visualization. a was introduced into the patient?s cervix. The single tooth tenaculum was then removed and hemostasis was assured?using pressure. a Hernandez catheter?was inserted and clear urine started draining. Gloves were changed to clean ones. Attention was then drawn to the abdomen where a 10 mm longitudinal incision was done intra umbilical and carried down all the way to the fascia, which was tented?up using 2 Clinton clamps and was nicked in the midline and then extended on both end of the incision?, them using 2 pick?ups the peritoneum?was entered with Metzenbaum scissors and under direct visualization, a 10 mm Moody trocar was introduced into the patient?s abdomen. Once intraperitoneal placement was confirmed with direct visualization, pneumoperitoneum was started & was easily obtained.Then, two fingerbreadths above the pubic symphysis and towards the?right lower quadrant, under direct visualization, a 5 mm trocar was then introduced into the patient?s abdomen. and a 3rd one on the left?lower quadrant was placed?in a similar manner. The patient was placed in Trendelenburg position, Inspection revealed right tubal filling up most of the right tube was bluish discoloration and 30 cc of hemoperitoneum, normal bilateral ovaries and normal left fallopian tube. Attention was then drawn to the Right fallopian tube. Since most of the right tube was filled up with the ectopic with bluish discoloration decision was made to proceed with partial salpingectomy instead of salpingostomy The IP ligament was identified and fallopian tube was then grasped by the fimbria and incised from the mesosalpinx using ligasure device, using cautery for hemostasis and cutting afterwards a bite at a time all the way to the area medial to the edge of the ectopic of the right fallopian tube. Good hemostasis was noted from the right fallopian tube sites and the operative site. Specimen were then removed from the patient?s abdomen using endoloop from the 10 mm trocar through the umbilicus. Copious irrigation was done. Once good hemostasis was noted from the patient?s abdomen, pneumoperitoneum was deflated and all trocars were removed. Infraumbilical fascia was closed with 0 Vicryl and interrupted suture. The skin was closed with 4-0 Vicryl. The Right and left?lower quadrant ports were closed with 0 Vicryl. Bupivicaine 0.25 10 cc were injected subcuticularly in the 3 incisions. Then speculum was put back in the vagina inspection revealed?hemostasis at the site of the tenaculum, the?sponge stick was removed?from the patient's vagina and Hernandez was draining clear urine was taken out too. Sponge, lap and needle counts were correct x2. The patient was taken to the recovery room in stable condition.
[2022-01-14] MEDS: fentaNYL citrate/PF 100 MCG/2 ML VIAL 25 MCG IVPUSH (15:34)
== END 2022-01-14 18:10 | disposition home or self-care (01) ==
PROVIDERS: Visit Provider Obstetrics & Gynecology
PROC: 10T24ZZ Resection of Products of Conception, Ectopic, Percutaneous Endoscopic Approach (ICD-10-PCS; CPT 59150; principal; 2022-01-14 12:30)
DX: O00.90 Unspecified ectopic pregnancy without intrauterine pregnancy (principal); Z67.90 Unspecified blood type, Rh positive; F12.90 Cannabis use, unspecified, uncomplicated
CPT/HCPCS: 58661; 36415; 76801; 76817; 80076; 82565; 84702; 85027; 86850; 86900; 86901; 88305; J0131; J1100; J1170; J2250; J2370; J2550; J2795; J3010

== ENCOUNTER 2022-01-22 15:02 | Outpatient (REF) | payer MEDICAID, SELFPAY ==
[2022-01-22 15:50] LABS: HCG Quantitative 100 mIU/mL
== END 2022-01-22 15:03 | disposition home or self-care (01) ==
LOC: HO.LAB 15:02
PROVIDERS: Visit Provider Obstetrics & Gynecology
DX: O00.90 Unspecified ectopic pregnancy without intrauterine pregnancy (principal)
CPT/HCPCS: 36415; 84702; 99212

== ENCOUNTER 2022-01-27 16:25 | Outpatient (REF) | payer MEDICAID, SELFPAY ==
[2022-01-27 18:03] LABS: HCG Quantitative 37 mIU/mL
== END 2022-01-27 16:26 | disposition home or self-care (01) ==
LOC: HO.LAB 16:25
PROVIDERS: Visit Provider Obstetrics & Gynecology
DX: O00.90 Unspecified ectopic pregnancy without intrauterine pregnancy (principal)
CPT/HCPCS: 36415; 84702

== ENCOUNTER → 2022-01-28 11:02 | Outpatient (BNVA) | payer MEDICAID, SELFPAY | PROVIDERS: Visit Provider Obstetrics & Gynecology | DX: O00.90 Unspecified ectopic pregnancy without intrauterine pregnancy (principal); Z98.890 Other specified postprocedural states | CPT/HCPCS: 99212 ==

== ENCOUNTER 2022-02-17 14:06 | Outpatient (REF) | payer MEDICAID, SELFPAY ==
[2022-02-17 15:22] LABS: HCG Quantitative < 2 mIU/mL
== END 2022-02-17 14:07 | disposition home or self-care (01) ==
LOC: HO.LAB 14:06
PROVIDERS: Visit Provider Obstetrics & Gynecology
DX: O00.90 Unspecified ectopic pregnancy without intrauterine pregnancy (principal)
CPT/HCPCS: 36415; 84702

== ENCOUNTER → 2022-02-18 11:08 | Outpatient (BNVA) | payer MEDICAID, SELFPAY | PROVIDERS: Visit Provider Obstetrics & Gynecology | DX: Z30.017 Encounter for initial prescription of implantable subdermal contraceptive (principal); Z32.02 Encounter for pregnancy test, result negative | CPT/HCPCS: 11981; 81025; J7307 ==

== ENCOUNTER → 2022-03-04 15:09 | Outpatient (BNVA) | payer MEDICAID, SELFPAY | PROVIDERS: Visit Provider Obstetrics & Gynecology | DX: Z30.46 Encounter for surveillance of implantable subdermal contraceptive (principal); Z30.09 Encounter for other general counseling and advice on contraception | CPT/HCPCS: 11982; 99212 ==

== ENCOUNTER → 2022-03-15 13:39 | Outpatient (BNVA) | payer MEDICAID, SELFPAY | PROVIDERS: Visit Provider Obstetrics & Gynecology | DX: M79.602 Pain in left arm (principal) | CPT/HCPCS: 99212 ==

== ENCOUNTER 2022-06-20 12:25 | Emergency (ER) | payer MEDICAID, SELFPAY ==
[2022-06-20 12:57] VITALS: BP 110/72; PULSE 65; RESP 17; TEMP 36.6; O2SAT 99; BMI 21.6
--- NOTE | 2022-06-20 12:58 | ED_ITS ---
HPI - Back Pain/Injury General Chief Complaint: Back Pain/Injury Stated Complaint: Lower back pain/leg pain Time Seen by Provider: 06/20/22 12:59 Source: patient Mode of arrival: ambulatory Limitations: language barrier (Georgian-speaking) History of Present Illness HPI Narrative: 27-year-old female with a past medical history of sciatica who is presenting to the ER with complaints of bilateral lower back pain radiating to her bilateral buttocks down into her legs for the past 3-4 days worse today. Reports that this feels similar to her last sciatica episode approximately 1 year ago. She reports she was prescribed naproxen, Flexeril and it did not provide any symptomatic relief in the past. Reports when she got the Toradol shot did help mildly. Her last menstrual period was May 11 and she was due for her period June 11 she is unsure if she is therefore she is requesting a test. She denies any fevers, cough, chest pain or shortness of breath, abdominal pain, flank pain, dysuria, hematuria, abnormal vaginal discharge, black or bloody stools, urinary bowel incontinence or retention, saddle anesthesias recent falls or trauma, rashes or any other symptoms complaints or concerns at this time. MD elicited complaint: back pain Pertinent past history: prior back pain Onset (ago): day(s) (3-4) Timing: constant and progressively worsening Severity: moderate Similar Symptoms Previously: Yes Quality: aching Location: lumbar spine Radiation: buttocks, left upper leg, right upper leg, left leg below the knee and right leg below the knee Exacerbating factors: movement, walking and lifting Relieving factors: none Context: unknown Associated symptoms: denies other symptoms Treatments prior to arrival: other (See above) Work related injury: No Related Data Previous Rx's Medication Instructions Recorded L norgest/E estradiol-E estrad 1 tab PO DAILY 84 days #84 ea 03/04/22 0.15 mg-30 mcg (84)/10 mcg(7) tabs,3mos (Season) cyclobenzaprine 10 mg tablet 10 mg PO Q8H #14 tabs 06/20/22 ketorolac 10 mg tablet 10 mg PO Q8H #14 tabs 06/20/22 oxycodone 5 mg tablet 5 mg PO Q6H PRN pain #10 tabs 06/20/22 prednisone 20 mg tablet 40 mg PO DAILY inflammation 5 days 06/20/22 #10 tabs Allergies Allergy/AdvReac Type Severity Reaction Status Date / Time No Known Allergies Allergy Verified 06/20/22 12:56 [No Known Allergies*] Review of Systems Review of Systems: Constitutional : No trauma, No Weight loss, No Fever, No Chills, ENT/Mouth : No Hearing loss, No Ear Pain, No Nasal Congestion, No Sinus Pain, No Hoarseness, No sore throat, No Rhinorrhea, No Swallowing Difficulty Cardiovascular : No Chest Pain, No SOB Respiratory : No Cough, No Dyspnea Gastrointestinal : No Nausea, No Vomiting, No Diarrhea, No abdominal Pain, No Hematochezia, No Melena Genitourinary : No Dysuria, No Urinary Frequency, No Hematuria, No Urinary or Bowel Incontinence/retention Musculoskeletal : + Back pain, No neck pain, No joint stiffness, No joint swelling Skin : No Skin Lesions, No rash or signs of infection Neuro : No Weakness, No Numbness, No Paresthesias, No headache, no loss of bowel or bladder incontinence, no saddle anesthesia, Focal weakness, + radiation Denies history of IV drug usage. Yes all other systems are reviewed and are negative [facility] Past Medical History Attestation statement: The following information was validated with the patient. Source: old records reviewed and nursing notes reviewed Medical History Amenorrhea Family History Family History Mother Heart problem Hx of diabetes mellitus Father Hypertension Maternal Grandmother Hx of diabetes mellitus Social History Social History Household Members: Children Alcohol intake: former Patient Tobacco Use Status: Never used Tobacco Substance Use Type: Marijuana Trauma History: none Special lenore needs: No Agree to transfusion: Yes Advance Directives: No Advance Directives Information Provided: No Physical Exam Vital Signs: Vital Signs: Last Vital Signs Temp 98 F 06/20/22 12:57 Pulse 65 06/20/22 12:57 Resp 17 06/20/22 12:57 BP 110/72 06/20/22 12:57 Pulse Ox 99 06/20/22 12:57 O2 Del Method 06/20/22 12:57 BMI result Body Mass Index 21.6 vital signs have been reviewed as normal and appeared to be correct. Blood pressure normal. Heart rate normal. Respiration rate normal. Temperature normal. Oxygen saturation normal. Appearance: Alert. Oriented X3. No acute distress. Head: Normal external exam. Normocephalic. Atraumatic. No [place] signs noted. No raccoon eyes noted Eyes: PERRLA. EOMI. Conjunctiva and sclera normal. Eyelids normal. ENT: EAC normal. TM's Normal. Pharynx normal. Uvula midline. Moist mucous membranes. No trismus noted. No drooling noted. No muffled voice noted. Neck: Normal inspection. Neck supple. FROM. No adenopathy. Thyroid Normal. No meningeal signs. No neck mass noted. CVS: Normal heart rate and rhythm. Heart sound normal. No murmurs noted. Pulses normal throughout. Respiratory: No respiratory distress. Painless inspiration. Breath sounds normal. No wheezes/rales/rhonchi noted. Chest nontender. No accessory muscle usage noted or decreased air movement noted. Abdomen: Soft and nontender. Bowel sounds normal in all 4 quadrants. No distention noted. No organomegaly noted. No visible injury noted. Back: No CVA tenderness. Full range of motion noted. No obvious deformities, or edema. Mild para-spinal muscular tenderness from lumbar region to coccyx. Full ROM in back and lower extremities. 5/5 strength hip extension/flexion, abduction, adduction. Mild Lumbar pain with hip flexion against resistance. Straight leg raise test negative on right; Straight leg raise test negative on left; Reflexes normal ankle and knee bilaterally; EHL motor strength normal bilaterally. No rashes/lesion/induration/fluctuance or signs infection noted. Skin: Skin warm and dry. Normal skin color. Normal skin turgor. No rashes/lesions/lacerations noted. Extremities: No lower extremity edema. Extremities exhibit normal range of motion. Extremities nontender. Neuro: Oriented X 3. No motor deficit. No sensory deficit. Reflexes normal. Patient has a normal steady gait. Course Course Course Narrative: Pt c likely muscular pain, but could be herniated disc. Neuro exam shows no deficits. Not c/w AAA/epidural abscess/dissection.No high risk Hx (Incont, fever, immunosupp, recent surgery/LP, coag, signif trauma, wt loss, puls mass, hx/o Ca, TB, or IVDU) to warrant MRI/CT today. Not c/w Pyelo/UTI/kidney stone/spinal fx. Not cauda equina syndrome. Imaging not currently indicated. UA was obtained due to patient concern for possible UA within normal limits no evidence of UTI and patient did not have any urinary symptoms and urine is negative. SOLOMON c meds and f/u. Medical Decision Making Lab Data MDM Lab Attestation statement: I reviewed the patient's lab results. Labs: Lab Results 06/20/22 06/20/22 Range/Units 13:14 13:14 Urine Color Yellow Urine Appearance Cloudy Urine pH 5.5 (5.0-9.0) Ur Specific [place] >= 1.030 H (1.005-1.025) Urine Protein Negative (Neg-Trace) mg/dL Urine Glucose (UA) Negative (Negative) mg/dL Urine Ketones Negative (Negative) mg/dL Urine Blood Negative (Negative) Urine Nitrite Negative (Negative) Ur Leukocyte Esterase Negative (Negative) Urine Test NEGATIVE (NEGATIVE) Prescription Management I considered prescription management with: Pain Medication Discharge Plan Discharge Clinical Impression: Acute lumbar radiculopathy Patient Disposition: Home, Self-Care Prescriptions: New ketorolac 10 mg tablet 10 mg PO Q8H Qty: 14 0RF cyclobenzaprine 10 mg tablet 10 mg PO Q8H Qty: 14 0RF oxycodone 5 mg tablet 5 mg PO Q6H PRN (Reason: pain) Qty: 10 0RF Rx Instructions: Partial Fill upon patient request. prednisone 20 mg tablet 40 mg PO DAILY 5 Days Qty: 10 0RF No Action Nexplanon 68 mg implant 1 implant subdermal ONCE Qty: 1 0RF Nexplanon 68 mg implant 1 implant subdermal ONCE Qty: 1 0RF L norgest/e.estradiol-e.estrad [Seasonique] 0.15 mg-30 mcg (84)/10 mcg (7) tablets,dose pack,3 month 1 tab PO DAILY 84 Days Qty: 84 0RF Referrals: Physician,None [Primary Care Provider] - 2 days Stand Alone Forms: Work/School Release Print Language: Georgian
[2022-06-20 13:30] LABS: Appearance Urine Cloudy; Color Urine Yellow; Glucose Urine UA Negative (Negative); Leukocyte Esterase Urine Negative (Negative); Nitrite Urine Negative (Negative); PH 5.5 (5.0-9.0); Specific Gravity - Urine >= 1.030 (1.005-1.025); Urine Blood Negative (Negative); Urine Ketones Negative (Negative); Urine Protein Negative (Neg-Trace)
[2022-06-20 13:32] LABS: UPreg QC Valid YES; Urine Pregnancy NEGATIVE (NEGATIVE)
[2022-06-20] MEDS: predniSONE 20 MG TABLET 40 MG PO (13:44)
[2022-06-20] MEDS: Ketorolac Tromethamine 60 MG/2 ML VIAL IM (13:44)
== END 2022-06-20 14:23 | disposition home or self-care (01) ==
PROVIDERS: Physician Assistant Medical; Emergency Provider Emergency Medicine Emergency Medical Services
DX: M54.16 Radiculopathy, lumbar region (principal); M54.50 Low back pain, unspecified; M79.605 Pain in left leg; M79.604 Pain in right leg; Z79.899 Other long term (current) drug therapy
CPT/HCPCS: 81003; 81025; 99284; J1885